=== PATIENT | female | born 1960 | race Caucasian/White ===

== ENCOUNTER → 2017-05-27 14:37 | Outpatient (CLI) | payer MEDICARE, MEDICAID, SELFPAY ==
--- NOTE | 2017-05-27 14:48 | XR_ITS ---
XR chest 2V Ordering Physician: Tres Magallanes Patient Age: 56 years: Female HISTORY: ITS.REASON: LEFT WRIST PAIN,A/P INJURY,FEVER,COUGH TECHNIQUE: PA and lateral chest FINDINGS The lungs appear mildly hyperexpanded but clear with nothing definitely acute within new or hilar contrast digital technique is considered. Heart jamia and mediastinal structures unremarkable.. Previous chest film 10/06/2013. Chest wall T-spine unremarkable IMPRESSION stable chest nothing definite acute
--- NOTE | 2017-05-27 14:48 | XR_ITS ---
XR wrist LT min 3V Ordering Physician: rTes Magallanes Patient Age: 56 years: Female HISTORY: Left wrist pain injury. Dropped piece of what on her wrist pain radial aspect. TECHNIQUE: 3 views of the left breast COMPARISON :None available. Next field FINDINGS No fracture nor dislocation. Early degenerative changes first carpal-metacarpal joint with mild sclerosis, mild hypertrophic changes & narrowing about this joint. Also some minor sclerosis and early arthritic changes between navicular and trapezium articulation radial aspect of the wrist. . Scaphoid appears intact. The fat plane anterior to the wrist appears intact. Incidental note is made of asubtle ovoid lucent area nearly 5 mm x 3 mm at the distal metaphysis of the radius. I believe this This resides just along the dorsal endosteum. No periosteal or cortical reaction or expansion or other features to raise concern. Its margin is not particularly well-defined or sclerotic but tend to favor this is Most likely is a benign incidental observation. However if the patient should have any progressive pain dorsal aspect distal radius, or known other relevant pathology this may warrant follow-up IMPRESSION: No fracture nor dislocation Early degenerative changes radial aspect wrist- most notable at first carpal-metacarpal joint Small subtle lucent area at distal radius metaphysis -doubt significance but note comments above
== END ==
PROVIDERS: PCP Internal Medicine; Visit Provider Internal Medicine
DX: R05 Cough (principal)
CPT/HCPCS: 71046; 73110

== ENCOUNTER → 2018-02-25 15:52 | Outpatient (CLI) | payer MEDICARE, MEDICAID, SELFPAY ==
[2018-02-25 18:20] LABS: Amphetamine/Metha Screen,Urine Negative ng/mL (<1000); Barbiturates Screen,Urine Negative ng/mL (<200); Benzodiazepines Screen,Urine Negative ng/mL (<200); Cannabinoid Screen,Urine Negative ng/mL (<50); Cocaine Screen,Urine Negative ng/mL (<300); Methadone Screen,Urine Negative ng/mL (<300); Opiate Screen,Urine Negative ng/mL (<300); Phencyclidine Screen,Urine Negative ng/mL (<25)
== END ==
PROVIDERS: PCP Internal Medicine; Visit Provider Internal Medicine
DX: Z79.899 Other long term (current) drug therapy
CPT/HCPCS: 80305

== ENCOUNTER → 2018-03-19 14:15 | Outpatient (CLI) | payer MEDICARE, MEDICAID, SELFPAY ==
[2018-03-19 22:02] LABS: Amphetamine/Metha Screen,Urine Negative ng/mL (<1000); Barbiturates Screen,Urine Negative ng/mL (<200); Benzodiazepines Screen,Urine Negative ng/mL (<200); Cannabinoid Screen,Urine Negative ng/mL (<50); Cocaine Screen,Urine Negative ng/mL (<300); Methadone Screen,Urine Negative ng/mL (<300); Opiate Screen,Urine Negative ng/mL (<300); Phencyclidine Screen,Urine Negative ng/mL (<25)
== END ==
PROVIDERS: PCP Internal Medicine; Visit Provider Internal Medicine
DX: Z79.899 Other long term (current) drug therapy (principal)
CPT/HCPCS: 80305

== ENCOUNTER → 2018-04-01 11:40 | Outpatient (CLI) | payer MEDICARE, MEDICAID, SELFPAY ==
[2018-04-01 13:14] LABS: Amphetamine/Metha Screen,Urine Negative ng/mL (<1000); Barbiturates Screen,Urine Negative ng/mL (<200); Benzodiazepines Screen,Urine Negative ng/mL (<200); Cannabinoid Screen,Urine Negative ng/mL (<50); Cocaine Screen,Urine Negative ng/mL (<300); Methadone Screen,Urine Negative ng/mL (<300); Opiate Screen,Urine Negative ng/mL (<300); Phencyclidine Screen,Urine Negative ng/mL (<25)
== END ==
PROVIDERS: Visit Provider Internal Medicine
DX: R41.0 Disorientation, unspecified (principal); Z79.899 Other long term (current) drug therapy
CPT/HCPCS: 80305

== ENCOUNTER → 2018-05-28 14:16 | Outpatient (CLI) | payer MEDICARE, MEDICAID, SELFPAY ==
--- NOTE | 2018-05-28 14:22 | XR_ITS ---
XR hip LT 2-3V w/pelvis HISTORY: ITS.REASON: LT HIP PAIN ORDERING PHYSICIAN: Tres Magallanes PATIENT AGE: 57 years COMPARISON: None FINDINGS: No fracture or dislocation is evident. No significant degenerative change. No lytic or blastic change. Unremarkable soft tissues IMPRESSION: Negative hip
== END ==
PROVIDERS: PCP Internal Medicine; Visit Provider Internal Medicine
DX: M25.552 Pain in left hip (principal)
CPT/HCPCS: 73502

== ENCOUNTER → 2018-06-13 11:51 | Outpatient (CLI) | payer MEDICARE, MEDICAID, SELFPAY ==
[2018-06-13 12:46] LABS: Amphetamine/Metha Screen,Urine Negative ng/mL (<1000); Barbiturates Screen,Urine Negative ng/mL (<200); Benzodiazepines Screen,Urine Negative ng/mL (<200); Cannabinoid Screen,Urine Negative ng/mL (<50); Cocaine Screen,Urine Negative ng/mL (<300); Methadone Screen,Urine Negative ng/mL (<300); Opiate Screen,Urine Negative ng/mL (<300); Phencyclidine Screen,Urine Negative ng/mL (<25)
== END ==
PROVIDERS: Visit Provider Internal Medicine
DX: Z79.899 Other long term (current) drug therapy (principal)
CPT/HCPCS: 80305; 80346

== ENCOUNTER 2018-06-17 09:45 | Outpatient (RCR) | payer MEDICARE, MEDICAID, SELFPAY ==
--- NOTE | 2018-06-17 10:43 | HMH.PTOPEV ---
PT Outpatient Evaluation Rehab PT Outpatient Evaluation Start: 06/17/18 10:25 Freq: Status: Active Protocol: Document 06/17/18 10:25 JASE (Rec: 06/17/18 10:42 JASE [id number]) Electronically Signed By Darrion Dunham, PT 06/17/18 10:25 Outpatient Therapy Subjective History Subjective History Pt reports h/o chronic L sided LBP w/L LE radicular s/s for 1-2 months. Pt reports caring for terminally ill mother, sleeping in recliner, and lifting seemed to start s/s. Pt reports severe L LE (hip/ piriformis) pain, with weakness and N&T. Chief Complaint Pain Stiff Paresthesia Weakness Symptom Type Ache Sharp Dull Stabbing Numbness Tingling Symptoms Relieved By Rest/Positioning Heat Ice OTC Meds Prescription Meds Symptoms Aggravated By Prone Bending/Stooping Physical Activity Twisting Walking Lifting Prior Functional Limitations Lifting Housework Bending/Stooping Current Functional Limitations Lifting Housework Driving Sleeping Standing Stairs Bending/Stooping Symptom Description Constant but Variable Level of pain today (0-10) 6 Pain scale - at its best (0-10) 5 Pain scale - at its worst (0-10) 9 Lumbopelvic Eval Posture Thoracic Spine Posture Standing Position Neutral Lumbar Spine Posture Standing Position Decreased Lordosis Assistive device Assistive Devices None / NA Gait Observation General Gait Pattern Observation Antalgic Gait Palapation tenderness left lumbar spinal tenderness Yes: 3/4 paraspinal tenderness Yes: 3/4 buttock tenderness Yes: 3/4 Lumbar/Sacral Palpation Findings Tenderness Lumbar/Sacral Palpation Overall Comment 3/4 Accessory Movement L-spine Vertebrae Accessory Movements Left
== END 2018-06-17 09:50 | disposition home or self-care (01) ==
LOC: PT 09:45
PROVIDERS: Visit Provider Internal Medicine
DX: M54.32 Sciatica, left side (principal)
CPT/HCPCS: 97010; 97014; 97163; G0283

== ENCOUNTER → 2019-02-20 09:43 | Outpatient (CLI) | payer MEDICARE, MEDICAID, SELFPAY ==
--- NOTE | 2019-02-20 09:48 | CA_ITS ---
APPROVED REPORT Right Upper Extremity Venous Study for DVT. [employer]: Trang Torrez RT(R) Indications Upper Extremity Pain: Right Current Smoker Risk Factors Current Smoker Patient states she has a knot that appeared in upper right arm on the medial side x 6 days ago. Vein Imaging IJV (R): Normal phasic flow is seen. Normal flow, augmentation and compression is seen. No evidence of Deep Vein Thrombosis. No abnormalities are demonstrated. SCV (R): Normal phasic flow is seen. Normal flow, augmentation and compression is seen. No evidence of Deep Vein Thrombosis. No abnormalities are demonstrated. Axillary (R): Normal phasic flow is seen. Normal flow, augmentation and compression is seen. No evidence of Deep Vein Thrombosis. No abnormalities are demonstrated. Brachial (R): Normal phasic flow is seen. Normal flow, augmentation and compression is seen. No evidence of Deep Vein Thrombosis. No abnormalities are demonstrated. Cephalic (R): Thrombus Radial (R): Compressible Ulnar (R): Compressible Findings Color flow duplex demonstrates superficial thrombophlebitis of the right proximal Cephallic. Duplex evaluation of the right upper extremity demonstrates no evidence of DVT. Conclusion Color flow duplex demonstrates superficial thrombophlebitis of the right proximal Cephallic. Duplex evaluation of the right upper extremity demonstrates no evidence of DVT. Electronically signed by : Harjinder Paiz MD 02/20/2019 15:44:38
== END ==
PROVIDERS: PCP Internal Medicine; Visit Provider Surgery
DX: M79.601 Pain in right arm (principal); M79.89 Other specified soft tissue disorders
CPT/HCPCS: 93971

== ENCOUNTER 2019-04-10 08:03 | Observation (INO) ==
[2019-04-10 08:18] LABS: Basophils % 0.5 % (0.1-2.0); Eosinophils # 0.1 K/mm3 (0.0-0.4); Eosinophils % 0.8 % (0.1-12.0); Hematocrit 49.6 % (37.0-47.0); Lymphocytes # 1.8 K/mm3 (0.7-4.5); Lymphocytes % 22.1 % (10-50); Mean Corpuscular HGB Conc 32.2 g/dL (31.8-35.4); Mean Corpuscular Volume 96.4 fl (81-99); Mean Platelet Volume 7.5 fl (7.4-10.4); Monocytes # 0.6 K/mm3 (0.1-1.0); Monocytes % 7.2 % (1.7-9.3); Neutrophils # 5.5 K/mm3 (1.8-7.8); Neutrophils % 69.4 % (37.0-80.0); Platelet Count 214 K/mm3 (142-424); Red Blood Count 5.15 M/mm3 (4.20-5.40); Red Cell Distribution Width 13.8 % (11.5-17.5)
--- NOTE | 2019-04-10 08:23 | Emergency Department Note ---
ED Disposition Clinical Impression: Alcohol withdrawal syndrome, Hypokalemia, Urinary tract infection Disposition: Admitted As Inpatient Condition on Discharge: Serious Referrals: Provider,Referral, [Referring] - - Critical Care Critical Care Time: No Attestation: On 04/10/19, the high probability of a clinically significant, sudden or life threatening deterioration of the following system(s) required my full and direct attention, intervention and personal management. The time I documented below is in addition to time spent performing reported procedures but includes the following listed in this critical care notation. Medical Decision Making - Medical Records Medical records reviewed: Yes: I reviewed the patient's medical records. - Ed Inquiry Pt receiving controlled substance: No Vital Signs: 04/10/19 08:04 Temperature 99.9 F H Temperature Source Oral Pulse Rate [Right] 93 H Respiratory Rate 18 Blood Pressure [Right Arm] 135/96 H Blood Pressure Mean [Right Arm] 109 02 Sat by Pulse Oximetry 93 L - Lab Data Lab results reviewed: Yes: I reviewed the patient's lab results. Lab Results 04/10/19 08:05: WBC 8.0, RBC 5.15, Hgb 16.0, Hct 49.6 H, MCV 96.4, MCH 31.0, MCHC 32.2, RDW 13.8, Plt Count 214, MPV 7.5, Neut % (Auto) 69.4, Lymph % (Auto) 22.1, [place] % (Auto) 7.2, Eos % (Auto) 0.8, Baso % (Auto) 0.5, Neut # (Auto) 5.5, Lymph # (Auto) 1.8, [place] # (Auto) 0.6, Eos # (Auto) 0.1, Baso # (Auto) 0.0 04/10/19 08:05: Sodium 135 L, Potassium 2.7 L*, Chloride 94 L, Carbon Dioxide 31, Anion Gap 12.7, BUN 13, Creatinine 0.91, Estimated Creat Clear 67, Estimated GFR 63, Est GFR ( Amer) 77, Glucose 123 H, Calcium 8.8, Total Bilirubin 1.2 H, AST 89 H, ALT 66, Alkaline Phosphatase 121 H, Troponin I < 0.02, Total Protein 7.4, Albumin 3.4, Globulin 4.0 H, Albumin/Globulin Ratio 0.9 L, Salicylates 3.1, Acetaminophen 0 L, Plasma/Serum Alcohol 0 04/10/19 08:05: Magnesium 1.4 04/10/19 08:13: Influenza Type A Ag Negative, Influenza Type B Ag Negative 04/10/19 08:34: Urine Color Yellow, Urine Appearance Clear, Urine pH 6.0, Ur Specific [place] 1.025, Urine Protein 1+, Urine Glucose (UA) Negative, Urine Ket ones Negative, Urine Blood 2+, Urine Nitrate Negative, Urine Bilirubin Negative, Urine Urobilinogen 1.0, Ur Leukocyte Esterase Negative, Urine RBC 3-5, Urine WBC 5-10, Ur Squamous Epith Cells 5-10, Amorphous Sediment 2+, Urine Bacteria 3+ 04/10/19 08:34: Urine Opiates Screen Negative, Urine Methadone Screen Negative, Ur Barbituates Screen Positive H, Ur Phencyclidine Scrn Negative, Ur Amphetamines Screen Negative, U Benzodiazepines Scrn Negative, Urine Cocaine Screen Negative, U Marijuana (THC) Screen Negative Result diagrams: 04/10/19 08:05 04/10/19 08:05 Orders (Tests/Meds): ED MEDICATIONS Discontinued Medications Generic Name Dose Route Start Last Admin Trade Name Freq PRN Reason Stop Dose Admin Sodium Chloride 1,000 mls @ 999 mls/hr 04/10/19 08:15 04/10/19 08:18 Sod Chlor 0.9% 1000ml Bag IV 04/10/19 09:15 999 mls/hr .Q1H1M PATRICA Administration Ondansetron HCl 4 mg 04/10/19 08:14 04/10/19 08:17 Zofran 4mg/2ml Vial IV 04/10/19 08:15 4 mg ONCE ONE Administration ORDERS Category Date Time Status Troponin I Q3H Lab 04/10/19 11:15 Ordered Troponin I Q3H Lab 04/10/19 14:15 Ordered Urine Culture Stat Micro 04/10/19 08:34 Received - Radiology Data #1 Image(s): Chest Image Reviewed: Yes I reviewed the patient's radiology results, Yes I reviewed the patient's radiology image Preliminary Findings: Normal/NAD - ECG Data Tracing #1 I reviewed this ECG and interpreted as documented below: Normal sinus rhythm at a rate of 79, normal EKG. ECG normal with no acute: arrhythmias, ischemia, conduction abnormalities, chamber hypertrophy Normal Sinus Rhythm: Yes Alcohol HPI - General Chief Complaint: Alcohol Stated Complaint: alcohol Time Seen by Provider: 04/10/19 08:10 Mode of Arrival: EMS Limitations: No Limitations Description of Symptoms (Recalled from ER Triage Doc. by RN): Pt states 3 days ago she began to drink excessive amout of tequila and then quit last night and now she began to have chills, N/V, shakes, and belly pain. Pt states she is not normally a drinker. - History of Present Illness HPI narrative: 58-year-old female presents with complaints of nausea vomiting, nervousness and tremor after 3 days of binge drinking and 1 day of abstinence. MD complaint: alcohol withdrawal Last drink: days (ago) (1) Recent trauma: No Associated symptoms: nausea, vomiting, tremors Treatments prior to arrival: none - Related Data Home Medications Medication Instructions Recorded Confirmed aspirin 81 mg tablet,delayed 81 mg PO DAILY 12/24/17 02/20/19 release clonazepam 1 mg tablet 1 mg PO QID tab 12/24/17 02/20/19 estradiol 1 mg tablet 1 mg PO DAILY 12/24/17 02/20/19 mirtazapine 45 mg tablet 45 mg PO DAILY 12/24/17 02/20/19 omeprazole 20 mg capsule,delayed 20 mg PO DAILY 12/24/17 02/20/19 release pregabalin 200 mg capsule 200 mg PO BID 12/24/17 02/20/19 Previous Rx's Medication Instructions Recorded darifenacin ER 15 mg 15 mg PO DAILY #30 tab 01/22/18 tablet,extended release 24 hr Cyclobenzaprine HCl [Flexeril 10mg 10 mg PO TID PRN #15 tab 06/10/18 tablet] Allergies Allergy/AdvReac Type Severity Reaction Status Date / Time No Known Allergies Allergy Unverified 02/20/19 09:13 [facility] History - Hepatitis A Screen Drug use history?: No High risk sexual behaviors?: No History of sexually transmitted infection?: No Currently employed?: No Childcare worker?: No Do you have indoor plumbing?: Yes Do you have electricity?: Yes Attestation statement:: This patient has been screened for Hepatitis A risk factors. I have reviewed the patient's past medical history: Yes Medical History: Reports:: Chronic Obstructive Pulmonary Disease (COPD), Depression, Gastroesophageal Reflux Disease(GERD) Denies:: Diabetes Mellitus Type 2, Internal Pacemaker, Seizures Other Medical History: Reports: Hormone Therapy Comment: Bladder Issues Other Surgeries: Yes: Cardiac Catheterization, Hysterectomy-Total, Tubal Ligation, Other. No: Pacemaker Comment: polyps removed from vocal cords - Social History Smoking Status: Current every day smoker Tobacco Type: cigarettes # Packs/Day (cigarettes): 1 Alcohol Intake: current Alcohol Intake Frequency:: holidays/special occasions only Substance Use Type: denies use Occupational Status: unemployed Housing: house - Psychiatric History Pschychiatric History:: Reports:: Depression Family Hx:: Coronary Artery Disease, Heart Attack Comment: Paternal Grandmother- of [place] at 62 ROS Obtained: Yes Systems reviewed as appropriate & no additional complaints - Constitutional Constitutional: Reports fatigue, Reports malaise - Eyes Eyes: Reports system reviewed and no additional complaints, except as docu - ENT Ears, Nose, Mouth, and Throat: Reports system reviewed and no additional complaints, except as docu - Cardiovascular Cardiovascular: Reports system reviewed and no additional complaints, except as docu - Respiratory Respiratory: Yes system reviewed and no additional complaints, except as docu - Gastrointestinal Gastrointestingal: Reports: nausea, vomiting - Genitourinary Female Genitourinary: Reports system reviewed and no additional complaints, except as docu - Musculoskeletal Musculoskeletal: Reports system reviewed and no additional complaints, except as docu - Integumentary/Breasts Skin/Breast: Reports system reviewed and no additional complaints, except as docu - Neurologic Neurologic: Reports tremor(s) - Endocrine Endocrine: Reports system reviewed and no additional complaints, except as docu - Hematologic/Lymphatic Henatologic/Lymphatic: Reports system reviewed and no additional complaints, except as docu - Allergic/Immunologic Allergic/Immunologic: Reports system reviewed and no additional complaints, except as docu Physical Exam - General General appearance: alert, anxious - Head Head exam: atraumatic, normocephalic, normal inspection - Eye Eye exam: Present: normal appearance, PERRL, EOMI - ENT ENT exam: Present: normal exam, normal oropharynx, mucous membranes moist, TM's normal bilaterally, normal external ear exam - Neck Neck exam: Present: normal inspection, full ROM, trachea midline. Absent: meningismus, lymphadenopathy - Chest Chest inspection: Present: normal inspection, symmetric chest wall rise. Absent: tenderness - Respiratory Respiratory exam: Present: normal lung sounds bilaterally. Absent: respiratory distress - Cardiovascular Cardiovascular exam: Present: regular rate, normal rhythm, normal heart sounds. Absent: JVD - Abdominal Exam Abdominal exam: Present: soft, normal bowel sounds. Absent: distention, tenderness, guarding - Extremities Exam Extremities exam: Present: normal inspection, full ROM, normal capillary refill. Absent: calf tenderness - Back Exam Back exam: Present: normal inspection. Absent: tenderness - Neurological Exam Neurological exam: Present: alert, oriented X3, CN II-XII intact. Absent: motor sensory deficit - Psychiatric Psychiatric exam: Present: anxious - Skin Skin exam: Present: warm, dry, intact, normal color
[2019-04-10 08:37] LABS: Alanine Aminotransferase 66 U/L (12-78); Albumin Level 3.4 gm/dL (3.4-5.0); Albumin/Globulin Ratio 0.9 (1.1-1.8); Alkaline Phosphatase 121 U/L (46-116); Anion Gap 12.7 mEq/L (5-15); Aspartate Amino Transferase 89 U/L (15-37); Bilirubin,Total 1.2 mg/dL (0.2-1.0); Blood Urea Nitrogen 13 mg/dL (7-18); Calcium 8.8 mg/dL (8.5-10.1); Carbon Dioxide 31 mmol/L (21.0-32.0); Chloride 94 mmol/L (98-107); Ethyl Alcohol 0 mg/dL (0-99); Glucose 123 mg/dL (74-106); Salicylate 3.1 mg/dL (2.8-20.0); Sodium 135 mmol/L (136-145); Total Protein,Serum 7.4 gm/dL (6.4-8.2)
[2019-04-10 08:38] LABS: Acetaminophen 0 ug/mL (10-30)
[2019-04-10 08:40] LABS: Microscopic, Urine URINE MICROSCOPIC (MICROSCOPIC)
[2019-04-10 08:42] LABS: Appearance,Urine CLEAR (Clear); Blood, Urine 2+ (Negative); Color,Urine YELLOW (Yellow); Glucose,Urine (UA) Negative (Negative); Ketones,Urine Negative (Negative); Leukocyte Esterase,Urine Negative (Negative); Protein,Urine 1+ (Negative); Specific Gravity, Urine 1.025 (1.005-1.030)
[2019-04-10 08:50] LABS: Bilirubin,Urine Negative (Negative)
[2019-04-10 08:52] LABS: Amphetamine/Metha Screen,Urine Negative ng/mL (<1000); Barbiturates Screen,Urine Positive ng/mL (<200); Benzodiazepines Screen,Urine Negative ng/mL (<200); Cannabinoid Screen,Urine Negative ng/mL (<50); Cocaine Screen,Urine Negative ng/mL (<300); Methadone Screen,Urine Negative ng/mL (<300); Opiate Screen,Urine Negative ng/mL (<300); Phencyclidine Screen,Urine Negative ng/mL (<25)
[2019-04-10 09:01] LABS: Amorphous Sediment,Urine 2+ /lpf; Bacteria,Urine 3+ /lpf
--- NOTE | 2019-04-10 12:55 | Electrocardiograph Report ---
APPROVED REPORT Exam: Resting ECG HR:79 bpm ECG Measurements Heart Rate 79 AXES [place] 128 P 63 QRSd 76 QRS 89 QT 402 T63 QTc 460 <Conclusion> Normal sinus rhythm Normal ECG Electronically signed by : Tres Magallanes, 04/10/2019 12:54:31
--- NOTE | 2019-04-10 15:17 | Pharmacy Consult Notes ---
[facility] Pharmacy VTE Monitoring - Patient Demographics Admission date: 04/10/19 Report Date: 04/10/19 Time: 15:17 Allergies/Adverse Reactions: Patient Allergies No Known Allergies Allergy (Unverified 02/20/19 09:13) Height: 1.65 m Weight: 61.037 kg Patient Problems: Current Active Problems Hypokalemia (Acute) Alcohol withdrawal syndrome (Acute) Urinary tract infection (Acute) - VTE Risk Labs: VTE Related Lab Results Hgb 16.0 g/dL (12.2-16.2) 04/10/19 08:05 Hct 49.6 % (37.0-47.0) H 04/10/19 08:05 Plt Count 214 K/mm3 (142-424) 04/10/19 08:05 BUN 13 mg/dL (7-18) 04/10/19 08:05 Creatinine 0.91 mg/dL (0.55-1.02) 04/10/19 08:05 Estimated Creat Clear 67 mL/min (50-200) 04/10/19 08:05 Was VTE Risk Assessment Performed: Yes VTE Score: 3 VTE Risk Level: Low Risk Clinical Trial Participant: No - Prophylaxis VTE Prophylaxis Ordered?: Yes Types of VTE Prophylaxis: TEDS Knee High
--- NOTE | 2019-04-10 15:26 | History & Physical Report ---
*Admission Date: 04/10/19 *Chief complaint: Nausea/vomiting/hypokalemia/alcohol withdrawal *History of present illness: 58-year-old white female with a history of 3 days of significant tequila ingestion-she reports that "I normally do not drink but I just felt like drinking a lot of tequila." She reports that she stopped abruptly yesterday and this morning began to have shakes, vomiting and felt like she was about to have a seizure and came to the emergency department where she was found to be hypokalemic, hypomagnesemic and was admitted to the hospital. History is notable for fibromyalgia and bladder spasms for which she is "on disability." Law enforcement in [place] reports that patient has a notable history of drinking frequently even though she maintains that she has not been drinking over the past year. [facility] History I have reviewed the patient's past medical history: Yes Medical History: Reports:: Chronic Obstructive Pulmonary Disease (COPD), Depression, Gastroesophageal Reflux Disease(GERD) Denies:: Cancer, Diabetes Mellitus Type 1, Diabetes Mellitus Type 2, Internal Pacemaker, MRSA, Seizures *Have you ever received a pneumonia vaccine?: No *Have you received a flu vaccine this season?: No Other Medical History: Reports: Hormone Therapy Other Surgeries: Yes: Cardiac Catheterization, Hysterectomy-Total, Tubal Ligat ion, Other. No: Pacemaker Amputation: No Fractures: No - *Social History Educational Level: Completed High School Smoking Status: Current every day smoker Tobacco Type: cigarettes # Packs/Day (cigarettes): 1 Alcohol Intake: current Alcohol Intake Frequency:: 3 or more drinks per day Substance Use Type: denies use *Occupational Status:: unemployed Housing: house Household Members: family *Travel in the last 8 weeks: None - Psychiatric History Pschychiatric History:: Reports:: Depression Family Hx:: Coronary Artery Disease, Heart Attack Review of Systems - Review of Systems Review of systems:: pertinent systems reviewed and negative unless documented below Review of systems notable for GI distress-now resolved. Negative for seizures. Negative for cardiac or pulmonary symptoms. - *Neurologic Reports tremor(s) Meds Home Medications Medication Instructions Recorded Confirmed Type aspirin 81 mg tablet,delayed 81 mg PO DAILY 12/24/17 02/20/19 History release clonazepam 1 mg tablet 1 mg PO QID tab 12/24/17 02/20/19 History estradiol 1 mg tablet 1 mg PO DAILY 12/24/17 02/20/19 History mirtazapine 45 mg tablet 45 mg PO DAILY 12/24/17 02/20/19 History omeprazole 20 mg capsule,delayed 20 mg PO DAILY 12/24/17 02/20/19 History release pregabalin 200 mg capsule 200 mg PO BID 12/24/17 02/20/19 History darifenacin ER 15 mg 15 mg PO DAILY #30 tab 01/22/18 02/20/19 Rx tablet,extended release 24 hr Cyclobenzaprine HCl [Flexeril 10mg 10 mg PO TID PRN #15 tab 06/10/18 02/20/19 Rx tablet] Allergies Allergy/AdvReac Type Severity Reaction Status Date / Time No Known Allergies Allergy Unverified 02/20/19 09:13 Exam Vital signs and Labs for Last 24 Hours: Temp Pulse Resp BP Pulse Ox 98.2 F 70 18 117/85 93 L 04/10/19 10:36 04/10/19 12:00 04/10/19 10:36 04/10/19 10:36 04/10/19 10:04 Laboratory Results - last 24 hr 04/10/19 08:05: WBC 8.0, RBC 5.15, Hgb 16.0, Hct 49.6 H, MCV 96.4, MCH 31.0, MCHC 32.2, RDW 13.8, Plt Count 214, MPV 7.5, Neut % (Auto) 69.4, Lymph % (Auto) 22.1, [place] % (Auto) 7.2, Eos % (Auto) 0.8, Baso % (Auto) 0.5, Neut # (Auto) 5.5, Lymph # (Auto) 1.8, [place] # (Auto) 0.6, Eos # (Auto) 0.1, Baso # (Auto) 0.0 04/10/19 08:05: Sodium 135 L, Potassium 2.7 L*, Chloride 94 L, Carbon Dioxide 31, Anion Gap 12.7, BUN 13, Creatinine 0.91, Estimated Creat Clear 67, Estimated GFR 63, Est GFR ( Amer) 77, Glucose 123 H, Calcium 8.8, Total Bilirubin 1.2 H, AST 89 H, ALT 66, Alkaline Phosphatase 121 H, Troponin I < 0.02, Total Protein 7.4, Albumin 3.4, Globulin 4.0 H, Albumin/Globulin Ratio 0.9 L, Salicylates 3.1, Acetaminophen 0 L, Plasma/Serum Alcohol 0 04/10/19 08:05: Magnesium 1.4 04/10/19 08:13: Influenza Type A Ag Negative, Influenza Type B Ag Negative 04/10/19 08:34: Urine Color Yellow, Urine Appearance Clear, Urine pH 6.0, Ur Specific [place] 1.025, Urine Protein 1+, Urine Glucose (UA) Negative, Urine Ketones Negative, Urine Blood 2+, Urine Nitrate Negative, Urine Bilirubin Negative, Urine Urobilinogen 1.0, Ur Leukocyte Esterase Negative, Urine RBC 3-5, Urine WBC 5-10, Ur Squamous Epith Cells 5-10, Amorphous Sediment 2+, Urine Bacteria 3+ 04/10/19 08:34: Urine Opiates Screen Negative, Urine Methadone Screen Negative, Ur Barbituates Screen Positive H, Ur Phencyclidine Scrn Negative, Ur Amphetamines Screen Negative, U Benzodiazepines Scrn Negative, Urine Cocaine Screen Negative, U Marijuana (THC) Screen Negative I & O for Last 24 hours: Intake & Output 04/08/19 04/09/19 04/10/19 04/11/19 11:59 11:59 11:59 11:59 Intake Total 340 / 340 Balance 340 / 340 Weight 134 lb 9 oz Narrative: Patient is awake. Alert. Oriented x3. Oropharynx clear. No JVD, otherwise ENT exam. Atraumatic facial exam. Lungs clear in the anterior sánchez except for some scattered smoker's rhonchi in the bases. Heart rate regular. Abdomen soft, benign, nontender. No focal neurologic deficits. No edema or clubbing. Good distal pulses. Assessment and Plan (1) Alcohol withdrawal syndrome Current visit: Yes Status: Acute Category: Medical Code(s): F10.239 - Alcohol dependence with withdrawal, unspecified Agree with admission and replacement of electrolytes. Probable discharge tomorrow. We will advance diet. PRN Ativan. Hold medications. Patient is on long-term clonazepam at home. I cautioned her about the danger of alcohol and benzodiazepines together. She reports that she ran out of her medicine 2 weeks ago because "my car is not working well and I did not want to drive long distances and I do not like the pharmacies in [place]." (2) Hypokalemia Current visit: Yes Status: Acute Category: Medical Code(s): E87.6 - Hypokalemia
[2019-04-11 06:53] LABS: Basophils % 0.5 % (0.1-2.0); Eosinophils # 0.1 K/mm3 (0.0-0.4); Neutrophils # 3.4 K/mm3 (1.8-7.8)
[2019-04-11 07:04] LABS: Eosinophils % 2.2 % (0.1-12.0); Lymphocytes % 34.9 % (10-50); Mean Corpuscular HGB Conc 31.9 g/dL (31.8-35.4); Mean Corpuscular Volume 95.7 fl (81-99); Mean Platelet Volume 8.4 fl (7.4-10.4); Monocytes # 0.3 K/mm3 (0.1-1.0); Monocytes % 4.4 % (1.7-9.3); Platelet Count 165 K/mm3 (142-424); Red Blood Count 4.18 M/mm3 (4.20-5.40); Red Cell Distribution Width 13.8 % (11.5-17.5); White Blood Count 5.8 K/mm3 (4.8-10.8)
[2019-04-11 07:40] LABS: Albumin Level 2.3 gm/dL (3.4-5.0); Albumin/Globulin Ratio 0.8 (1.1-1.8); Anion Gap 9.3 mEq/L (5-15); Bilirubin,Total 0.6 mg/dL (0.2-1.0); Globulin 2.9 gm/dl (1.3-3.2); Total Protein,Serum 5.2 gm/dL (6.4-8.2)
[2019-04-11 07:51] LABS: Calcium 7.7 mg/dL (8.5-10.1)
--- NOTE | 2019-04-11 08:48 | Discharge Summary ---
General - General Admission date:: 04/10/19 Discharge date: 04/12/19 HPI HPI: 58-year-old white female with a history of 3 days of significant tequila ingestion-she reports that "I normally do not drink but I just felt like drinking a lot of tequila." She reports that she stopped abruptly yesterday and this morning began to have shakes, vomiting and felt like she was about to have a seizure and came to the emergency department where she was found to be hypokalemic, hypomagnesemic and was admitted to the hospital. History is notable for fibromyalgia and bladder spasms for which she is "on disability." Law enforcement in [place] reports that patient has a notable history of drinking frequently even though she maintains that she has not been drinking over the past year. Hospital Course Hospital Course: Admitted for electrolyte disturbance, concern for alcohol withdrawal and tremor, and small dehydration. Responded well to IV fluids and vitamins. Able to tolerate advancement in diet. Patient had no seizures or teo DTs. Withdrawal symptoms treated with benzodiazepines. Decision made to transition to chlordiazepoxide the day prior to discharge for long-acting benefit and to limit the need to discharge with benzo taper due to high risk for resuming alcohol consumption. Patient continued to maintain that she does not drink and this was a one-time event however, she is well-known to us in the community for her unfortunate alcohol dependence. High risk for resuming drinking once discharged. Patient medically stable with no complaints at this time. Counseled on need to avoid alcohol due to increased risk of side effects with concurrent use of Benzos and EtOH. Follow-up with her PCP, Dr. Magallanes in the coming week. Objective Vital signs: Temp Pulse Resp BP Pulse Ox 98.8 F 86 18 108/77 L 98 04/11/19 08:00 04/11/19 08:00 04/11/19 08:00 04/11/19 08:00 04/11/19 08:00 Narrative: Patient is awake. Alert. Oriented x3. Appears chronically ill. Oropharynx clear. No JVD, otherwise ENT exam. Atraumatic facial exam. Lungs clear in the anterior sánchez except for some scattered smoker's rhonchi in the bases. Heart rate regular. Abdomen soft, benign, nontender. No focal neurologic deficits, intervally improved generalized tremor in hands No edema or clubbing. Good distal pulses. Results Labs on day of discharge: Labs from last 24 hours 04/11/19 04/11/19 04/10/19 06:20 06:20 08:34 WBC 5.8 D RBC 4.18 L Hct 40.0 MCV 95.7 MCH 30.5 MCHC 31.9 RDW 13.8 Plt Count 165 MPV 8.4 Neut % (Auto) 58.0 Lymph % (Auto) 34.9 [place] % (Auto) 4.4 Eos % (Auto) 2.2 Baso % (Auto) 0.5 Neut # (Auto) 3.4 Lymph # (Auto) 2.0 [place] # (Auto) 0.3 Eos # (Auto) 0.1 Baso # (Auto) 0.0 Sodium 139 Potassium 3.3 L D Chloride 104 Carbon Dioxide 29 Anion Gap 9.3 BUN 7 D Creatinine 0.70 D Estimated Creat Clear 89 Estimated GFR 86 Est GFR ( Amer) 104 D Glucose 108 H Calcium 7.7 L D Magnesium 1.3 L Total Bilirubin 0.6 AST 74 H ALT 47 D Alkaline Phosphatase 84 Total Protein 5.2 L D Albumin 2.3 L D Globulin 2.9 Albumin/Globulin Ratio 0.8 L Urine Color Urine Appearance Urine pH Ur Specific Justice Urine Protein Urine Glucose (UA) Urine Ketones Urine Blood Urine Nitrate Urine Bilirubin Urine Urobilinogen Ur Leukocyte Esterase Urine RBC Urine WBC Ur Squamous Epith Cells Amorphous Sediment Urine Bacteria Urine Opiates Screen Negative Urine Methadone Screen Negative Ur Barbituates Screen Positive H Ur Phencyclidine Scrn Negative Ur Amphetamines Screen Negative U Benzodiazepines Scrn Negative Urine Cocaine Screen Negative U Marijuana (THC) Screen Negative 04/10/19 08:34 WBC RBC Hct MCV MCH MCHC RDW Plt Count MPV Neut % (Auto) Lymph % (Auto) [place] % (Auto) Eos % (Auto) Baso % (Auto) Neut # (Auto) Lymph # (Auto) [place] # (Auto) Eos # (Auto) Baso # (Auto) Sodium Potassium Chloride Carbon Dioxide Anion Gap BUN Creatinine Estimated Creat Clear Estimated GFR Est GFR ( Amer) Glucose Calcium Magnesium Total Bilirubin AST ALT Alkaline Phosphatase Total Protein Albumin Globulin Albumin/Globulin Ratio Urine Color Yellow Urine Appearance Clear Urine pH 6.0 Ur Specific Justice 1.025 Urine Protein 1+ Urine Glucose (UA) Negative Urine Ketones Negative Urine Blood 2+ Urine Nitrate Negative Urine Bilirubin Negative Urine Urobilinogen 1.0 Ur Leukocyte Esterase Negative Urine RBC 3-5 Urine WBC 5-10 Ur Squamous Epith Cells 5-10 Amorphous Sediment 2+ Urine Bacteria 3+ Urine Opiates Screen Urine Methadone Screen Ur Barbituates Screen Ur Phencyclidine Scrn Ur Amphetamines Screen U Benzodiazepines Scrn Urine Cocaine Screen U Marijuana (THC) Screen Preliminary micro results at discharge 04/10/19 08:34 Urine Culture - Preliminary Urine,Clean Catch NO GROWTH AFTER 24 HOURS DS: Diagnosis - Discharge Diagnosis (1) Alcohol withdrawal syndrome Status: Acute (2) Hypokalemia Status: Resolved Discharge Plan - Patient Discharge Instructions ACTIVITY: Continue current activity DIET: continue same diet Patient Instructions: Urinary Tract Infection, DI for Urinary Tract Infection (UTI) - Follow up Plan Follow up with: Tres Magallanes [Primary Care Provider] - Disposition: Home, Self-Skilled Nursing Medications: Home Medications Medication Instructions Recorded Confirmed Type estradiol 1 mg tablet 1 mg PO DAILY 12/24/17 04/10/19 History Darifenacin Hydrobromide 7.5 mg PO HS 04/10/19 04/10/19 History [Darifenacin ER] Mirtazapine 30 mg PO DAILY 04/10/19 04/10/19 History Pregabalin [Lyrica 300mg Cap] 300 mg PO BID 04/10/19 04/10/19 History clonazePAM [Clonazepam] 1 mg PO TID 04/10/19 04/10/19 History risperiDONE [Risperdal] 1 mg PO DAILY 04/10/19 04/10/19 History Prescriptions/Medication Reconciliation: Continued estradiol 1 mg tablet 1 mg PO DAILY clonazePAM [Clonazepam] 1 mg PO TID Pregabalin [Lyrica 300mg Cap] 300 mg PO BID Mirtazapine 30 mg PO DAILY Darifenacin Hydrobromide [Darifenacin ER] 7.5 mg PO HS risperiDONE [Risperdal] 1 mg PO DAILY - Problem Reconciliation Problems Reviewed?: Yes
[2019-04-11 09:33] LABS: Hemoglobin 12.8 g/dL (12.2-16.2)
--- NOTE | 2019-04-11 10:00 | Progress Note ---
Internal Medicine - PN: Subj *Date: 04/11/19 *Time: 09:57 Interval history: Ms. Hayden appears clinically stable today with improvement in her labs however does complain of shakes and concern for going home and withdrawing. Denies being an alcoholic. States she was drinking tequila only for a couple days but this is not her norm. Have strong concern she is not being fully honest with me as she is well-known to us in the community for having regular pickups by the police for intoxication. Denies any history of DTs or seizures, however having difficult time trusting she is being honest with me, yet again. Denies chest pain, shortness of breath. Having multiple bowel movements but t hey are soft and formed. No nausea or vomiting. Tolerating liquid diet. Afebrile and normotensive Exam Vital signs and Labs for Last 24 Hours: Temp Pulse Resp BP Pulse Ox 98.8 F 86 18 108/77 L 98 04/11/19 08:00 04/11/19 08:00 04/11/19 08:00 04/11/19 08:00 04/11/19 08:00 Laboratory Results - last 24 hr 04/11/19 06:20: WBC 5.8 D, RBC 4.18 L, Hgb 12.8 D, Hct 40.0, MCV 95.7, MCH 30.5, MCHC 31.9, RDW 13.8, Plt Count 165, MPV 8.4, Neut % (Auto) 58.0, Lymph % (Auto) 34.9, [place] % (Auto) 4.4, Eos % (Auto) 2.2, Baso % (Auto) 0.5, Neut # (Auto) 3.4, Lymph # (Auto) 2.0, [place] # (Auto) 0.3, Eos # (Auto) 0.1, Baso # (Auto) 0.0 04/11/19 06:20: Sodium 139, Potassium 3.3 L D, Chloride 104, Carbon Dioxide 29, Anion Gap 9.3, BUN 7 D, Creatinine 0.70 D, Estimated Creat Clear 89, Estimated GFR 86, Est GFR ( Amer) 104 D, Glucose 108 H, Calcium 7.7 L D, Magnesium 1.3 L, Total Bilirubin 0.6, AST 74 H, ALT 47 D, Alkaline Phosphatase 84, Total Protein 5.2 L D, Albumin 2.3 L D, Globulin 2.9, Albumin/Globulin Ratio 0.8 L I & O for Last 24 hours: Intake & Output 04/08/19 04/09/19 04/10/19 04/11/19 23:59 23:59 23:59 23:59 Intake Total 710 / 710 1920 / 1920 Balance 710 / 710 1920 / 1920 Weight 61.037 kg 64.864 kg Microbiology Reports for the Last 24 Hours: Microbiology 04/10/19 08:34 Urine,Clean Catch Urine Culture - Preliminary NO GROWTH AFTER 24 HOURS Narrative: Patient is awake. Alert. Oriented x3. Appears chronically ill. Oropharynx clear. No JVD, otherwise ENT exam. Atraumatic facial exam. Lungs clear in the anterior sánchez except for some scattered smoker's rhonchi in the bases. Heart rate regular. Abdomen soft, benign, nontender. No focal neurologic deficits, generalized tremor in hands, voice intermittently tremulous No edema or clubbing. Good distal pulses. Assessment and Plan (1) Alcohol withdrawal syndrome Current visit: Yes Status: Acute Category: Medical Code(s): F10.239 - Alcohol dependence with withdrawal, unspecified (2) Hypokalemia Current visit: Yes Status: Resolved Category: Medical Code(s): E87.6 - Hypokalemia - Assessment and plan all Dx Assessment and Plan for all problems:: 58-year-old with history of alcohol dependency. Recent cessation of alcohol consumption, at risk for withdrawals. Transition to Librium today with a dose this morning. If tolerates well, will give additional dose tomorrow due to long half-life and active metabolites, will plan for discharge tomorrow and plan to follow-up with her PCP as soon as possible for continued observation and treatment in the outpatient setting. Advance diet today. Continues to require inpatient management. Clinically guarded, prognosis fair
[2019-04-12 06:36] LABS: Basophils % 0.5 % (0.1-2.0); Eosinophils # 0.2 K/mm3 (0.0-0.4); Eosinophils % 4.4 % (0.1-12.0); Hematocrit 41.8 % (37.0-47.0); Hemoglobin 12.9 g/dL (12.2-16.2); Lymphocytes # 1.4 K/mm3 (0.7-4.5); Lymphocytes % 28.9 % (10-50); Mean Corpuscular HGB Conc 30.9 g/dL (31.8-35.4); Mean Corpuscular Volume 97.7 fl (81-99); Mean Platelet Volume 9.8 fl (7.4-10.4); Monocytes # 0.2 K/mm3 (0.1-1.0); Monocytes % 3.7 % (1.7-9.3); Neutrophils % 62.4 % (37.0-80.0); Platelet Count 126 K/mm3 (142-424); Red Blood Count 4.28 M/mm3 (4.20-5.40); Red Cell Distribution Width 13.9 % (11.5-17.5); White Blood Count 4.7 K/mm3 (4.8-10.8)
[2019-04-12 06:44] LABS: Anion Gap 11.2 mEq/L (5-15); Calcium 7.6 mg/dL (8.5-10.1)
== END 2019-04-12 10:30 | disposition home or self-care (01) ==
LOC: ER 08:03 → 2ND 08:03
PROVIDERS: ADMIT Internal Medicine Adolescent Medicine; ATTEND Internal Medicine Adolescent Medicine
CPT/HCPCS: 36415; 71010; 71045; 80048; 80053; 80305; 80329; 81001; 83735; 84484; 85025; 87086; 87275; 87276; 93005; 96374; 99284; G0378; J2405

== ENCOUNTER 2019-05-10 13:27 | Observation (INO) ==
[2019-05-10 14:09] LABS: Basophils # 0.1 K/mm3 (0-0.2); Basophils % 0.2 % (0.1-2.0); Eosinophils # 0.1 K/mm3 (0.0-0.4); Eosinophils % 0.7 % (0.1-12.0); Hematocrit 51.5 % (37.0-47.0); Hemoglobin 17.2 g/dL (12.2-16.2); Lymphocytes # 1.8 K/mm3 (0.7-4.5); Lymphocytes % 8.9 % (10-50); Mean Corpuscular HGB Conc 33.4 g/dL (31.8-35.4); Mean Corpuscular Volume 94.9 fl (81-99); Mean Platelet Volume 7.8 fl (7.4-10.4); Monocytes # 0.7 K/mm3 (0.1-1.0); Monocytes % 3.6 % (1.7-9.3); Neutrophils # 17.6 K/mm3 (1.8-7.8); Neutrophils % 86.6 % (37.0-80.0); Platelet Count 439 K/mm3 (142-424); Red Blood Count 5.43 M/mm3 (4.20-5.40)
[2019-05-10 14:11] LABS: Albumin Level 3.5 gm/dL (3.4-5.0); Albumin/Globulin Ratio 0.8 (1.1-1.8); Anion Gap 24.2 mEq/L (5-15); Bilirubin,Total 0.3 mg/dL (0.2-1.0); Calcium 10.1 mg/dL (8.5-10.1); Globulin 4.2 gm/dl (1.3-3.2); Total Protein,Serum 7.7 gm/dL (6.4-8.2)
[2019-05-10 14:13] LABS: White Blood Count 20.6 K/mm3 (4.8-10.8)
[2019-05-10 14:15] LABS: Lymphocytes % 15 % (10-50); Monocytes % 1 % (2-9); Neutrophils % 84 % (42-76); RBC Morphology Normal; Total Cells Counted 100
[2019-05-10 15:42] LABS: Amylase 60 U/L (25-115)
--- NOTE | 2019-05-10 16:45 | Emergency Department Note ---
ED Disposition Clinical Impression: Alcohol abuse, Volume depletion, Hypomagnesemia, Acute anxiety, Agitation, Duodenitis Sepsis Qualifiers: Sepsis type: sepsis due to unspecified organism Sepsis acute organ dysfunction status: without acute organ dysfunction Qualified Code(s): A41.9 - Sepsis, unspecified organism Leukocytosis Qualifiers: Leukocytosis type: unspecified Qualified Code(s): D72.829 - Elevated white blood cell count, unspecified Alcohol intoxication Qualifiers: Complication of substance-induced condition: uncomplicated Qualified Code(s): F10.920 - Alcohol use, unspecified with intoxication, uncomplicated Gastritis Qualifiers: Gastritis type: alcoholic Chronicity: unspecified Gastritis bleeding: without bleeding Qualified Code(s): K29.20 - Alcoholic gastritis without bleeding Disposition: Admitted As Inpatient Condition on Discharge: Fair (Stable) Referrals: Tres Magallanes [Primary Care Provider] - Time of Disposition: 18:39 - Critical Care Critical Care Time: No Attestation: On 05/10/19, the high probability of a clinically significant, sudden or life threatening deterioration of the following system(s) required my full and direct attention, intervention and personal management. The time I documented below is in addition to time spent performing reported procedures but includes the following listed in this critical care notation. Medical Decision Making - Medical Records Medical records reviewed: Yes: I reviewed the patient's medical records. - Ed Inquiry Pt receiving controlled substance: No Ed was queried for this patient: No Vital Signs: 05/10/19 13:28 05/10/19 14:14 05/10/19 16:00 Temperature 98.5 F 99.8 F H Temperature Source Oral Oral Pulse Rate [Radial] 121 H 112 H 110 H Respiratory Rate 22 22 Blood Pressure [Right Arm] 132/101 H 126/91 H 110/74 Blood Pressure Mean [Right Arm] 111 102 86 Blood Pressure Source [Right Arm] Automatic Cuff Blood Pressure Position [Right Arm] Sitting Sitting 02 Sat by Pulse Oximetry 94 L 96 Oxygen Delivery Method Room Air - Lab Data Lab Results 05/10/19 13:51: WBC 20.6 H*, RBC 5.43 H, Hgb 17.2 H, Hct 51.5 H, MCV 94.9, MCH 31.7 H, MCHC 33.4, RDW 15.0, Plt Count 439 H, MPV 7.8, Neut % (Auto) 86.6 H, Lym ph % (Auto) 8.9 L, [place] % (Auto) 3.6, Eos % (Auto) 0.7, Baso % (Auto) 0.2, Neut # (Auto) 17.6 H, Lymph # (Auto) 1.8, [place] # (Auto) 0.7, Eos # (Auto) 0.1, Baso # (Auto) 0.1, Total Counted 100, Neutrophils % (Manual) 84 H, Lymphocytes % (Ma nual) 15, Monocytes % (Manual) 1 L, Platelet Estimate Normal, RBC Morphology Normal 05/10/19 13:51: Sodium 140, Potassium 3.2 L, Chloride 98, Carbon Dioxide 21, Anion Gap 24.2 H, BUN 6 L, Creatinine 0.94, Estimated Creat Clear 65, Estimated GFR 61, Est GFR ( Amer) 74, Glucose 148 H, Calcium 10.1, Total Bilirubin 0.3, AST 24, ALT 36, Alkaline Phosphatase 113, Total Protein 7.7 D, Albumin 3.5, Globulin 4.2 H, Albumin/Globulin Ratio 0.8 L, Plasma/Serum Alcohol 152 H 05/10/19 13:51: Amylase 60, Lipase 110 05/10/19 13:51: Magnesium 1.0 L 05/10/19 15:30: Lactate 7.1 H 05/10/19 15:30: Troponin I < 0.02, TSH 0.35 L D 05/10/19 17:05: Urine Color Yellow, Urine Appearance Clear, Urine pH 6.5, Ur Specific [place] 1.010, Urine Protein Negative, Urine Glucose (UA) Negative, Urine Ketones Negative, Urine Blood Trace-i, Urine Nitrate Negative, Urine Bilirubin Negative, Urine Urobilinogen 0.2, Ur Leukocyte Esterase Negative, Urine RBC Occasional, Urine WBC Occasional, Ur Squamous Epith Cells 10-20, Urine Bacteria None 05/10/19 17:05: Urine Opiates Screen Negative, Urine Methadone Screen Negative, Ur Barbituates Screen Positive H, Ur Phencyclidine Scrn Negative, Ur Amphetamines Screen Negative, U Benzodiazepines Scrn Positive H, Urine Cocaine Screen Negative, U Marijuana (THC) Screen Negative Result diagrams: 05/10/19 13:51 05/10/19 13:51 Orders (Tests/Meds): ED MEDICATIONS Generic Name Dose Route Start Last Admin Trade Name Freq PRN Reason Stop Dose Admin Sodium Chloride 1,000 mls @ 999 mls/hr 05/10/19 14:00 05/10/19 18:33 Sod Chlor 0.9% 1000ml Bag IV 05/10/19 15:00 Not Given .Q1H1M PATRICA Sodium Chloride 890 mls @ 999 mls/hr 05/10/19 16:00 05/10/19 16:01 Sod Chlor 0.9% 1000ml Bag IV 05/10/19 16:53 999 mls/hr .Q54M PATRICA Administration Multivitamins 10 ml/ Thiamine 1,015 mls @ 150 mls/hr 05/10/19 16:45 05/10/19 17:08 HCl 100 mg/ Magnesium Sulfate IV 05/10/19 23:30 150 mls/hr 2 gm/ Lactated Ringer's .Q6H46M PATRICA Administration Piperacillin Sod/Tazobactam 50 mls @ 100 mls/hr 05/10/19 17:30 05/10/19 17:48 Sod 3.375 gm/ Sodium Chloride IV 05/24/19 17:29 100 mls/hr Q6H PATRICA Administration Protocol Vancomycin HCl 1,000 mg/ 250 mls @ 125 mls/hr 05/10/19 17:28 05/10/19 18:00 Sodium Chloride IV 05/10/19 19:27 125 mls/hr ONCE ONE Administration Sodium Chloride 10 ml 05/10/19 17:28 Sodium Chloride 0.9% 10ml Vial IV 06/09/19 17:27 NEEDED PRN to Dilute Lorazepam inj Sodium Chloride 10 ml 05/10/19 18:33 Sodium Chloride 0.9% 10ml Vial IV 06/09/19 18:32 NEEDED PRN dilute protonix Discontinued Medications Generic Name Dose Route Start Last Admin Trade Name Johann PRN Reason Stop Dose Admin Folic Acid 1 mg 05/10/19 16:44 05/10/19 17:07 Folic Acid 1mg Tablet PO 05/10/19 16:45 1 mg ONCE ONE Administration Magnesium Sulfate 2 gm/ Sodium 104 mls @ 100 mls/hr 05/10/19 17:27 05/10/19 18:18 Chloride IV 05/10/19 18:29 Not Given ONCE ONE Sodium Chloride 1,910 mls @ 955 mls/hr 05/10/19 16:00 05/10/19 16:00 Sod Chlor 0.9% 1000ml Bag 30 ml/kg infuse over 2 hr (1910 ml) 05/10/19 17:59 955 mls/hr IV Administration .Q2H ONE Ioversol 75 ml 05/10/19 16:49 05/10/19 16:51 Rad-Optiray 350 100ml Vial IV 05/10/19 16:50 75 ml ONCE ONE Administration Protocol Lorazepam 1 mg 05/10/19 17:28 05/10/19 17:39 Ativan 2mg/Ml Vial IV 05/10/19 17:29 1 mg ONCE ONE Administration Ondansetron HCl 4 mg 05/10/19 13:53 05/10/19 13:54 Zofran 4mg/2ml Vial IV 05/10/19 13:54 4 mg ONCE ONE Administration Ondansetron HCl 4 mg 05/10/19 17:21 05/10/19 17:39 Zofran 4mg/2ml Vial IV 05/10/19 17:22 4 mg ONCE ONE Administration Pantoprazole Sodium 40 mg 05/10/19 18:33 Protonix 40mg Vial IV 05/10/19 18:34 ONCE ONE Potassium Chloride 40 meq 05/10/19 17:29 05/10/19 18:00 Klor-Con 20meq Tablet PO 05/10/19 17:30 40 meq ONCE ONE Administration Promethazine HCl 25 mg 05/10/19 15:58 05/10/19 16:00 Phenergan 25mg/Ml 1ml Vial IV 05/10/19 15:59 25 mg ONCE ONE Administration Sodium Chloride 25 ml 05/10/19 15:58 05/10/19 16:00 Sod Chlor 0.9% 25ml Bag IV 05/10/19 15:59 25 ml ONCE ONE Administration Sodium Chloride 10 ml 05/10/19 16:49 05/10/19 16:51 Rad-Saline Flush 10ml Syringe IV 05/10/19 16:50 10 ml ONCE ONE Administration ORDERS Category Date Time Status Chest XR -- portable [XR chest portable] Stat Exams 05/10/19 17:31 Taken Free T4 (Free Thyroxine) Stat Lab 05/10/19 13:51 Received Influenza A&B Antigens, Rapid [Rapid Influenza A&B Lab 05/10/19 17:32 Ordered Antigens] Stat Troponin I Q3H Lab 05/10/19 20:45 Ordered Troponin I Q3H Lab 05/10/19 23:45 Ordered Blood Culture Stat Micro 05/10/19 15:30 Received EKG Request [ECG Request by /Roz] Stat Y 05/10/19 17:39 Ordered - CT Data CT Scan: Abdomen, Pelvis Time Received: 18:16 Findings Narrative: [place] [id number] [place] [address] [address] Scan Report Signed Patient: Josie Hayden MR#: [id number] : 1960 Acct:[id number] Age/Sex: 58 / F ADM Date: 05/10/19 Loc: ER Attending Dr: Ordering Physician: Nadira Delgadillo III, DO Date of Service: 05/10/19 Procedure(s): CT abdomen pelvis w con Accession Number(s): [id number] cc: Jean Claude Mckeon ; Nadira Delgadillo III, DO; Tres Magallanes ~ Procedure: CT ABDOMEN PELVIS W CON Patient Age:58Y CLINICAL INDICATION: abd pain vomiting since last night with mid abdominal pain COMPARISON: [facility]/O MRI-L-SPINE W/O from 11/12/2014 TECHNIQUE: Axial images obtained with sagittal and coronal reformats. All CT scans at the facility use one or more dose reduction, viz: automated exposure control, ma/kV adjustment per patient size (including targeted exams where dose is matched to indication, i.e. head), or iterative reconstruction technique. FINDINGS: Lower thorax: No acute finding ABDOMEN: Liver: Ovoid low-density area seen at the posterior dome of the liver it measures soft tissue rather than fluid density although could be a hyperdense cyst but.. Question scant, early peripheral enhancement. Nonspecific mass at this point, could reflect hemangioma but other entities would need to be excluded particular in this age patient.. If no prior outside studies available for comparison a follow-up ultrasound would be suggested as next step. Hemangioma protocol follow-up CT as outpatient may be of benefit subsequent if not cystic in character Gallbladder: Nondistended. No radio opaque stones. Common duct normal to upper normal. Question mild dilatation of pancreatic duct Pancreas: No masses.. No fluid collections or discrete inflammation.. Spleen: unremarkable Adrenals: . left adrenal with slight nodularity: Suspect 11 X 12 mm nodule inferiorly with probable 11 mm nodule superiorly as well as. These are best seen on the coronal view 36-39 tract ====== no obstructive uropathy. Kidneys with satisfactory enhancement. ureters unremarkable. PELVIS: Hysterectomy. No adnexal masses Urinary bladder: 6 mm bladder stone is seen along the inferior left posterior aspect of the urinary bladder. No significant bladder wall thickening.. Again the ureters the the are unremarkable with some small phleboliths at the pelvic basin bilaterally but no ureteral stones otherwise seen. GI tract. ======= Rectum: Appears wall thickening rectum which continue to the anal verge-requires correlation. Generous soft tissue appearance about anal verge and introitus warrant follow-up correlation Remainder of the colon shows some mild wall thickening which I suspect reflects lack of distention in the other regions.... No liquid stool or diarrhea to raise further concern regarding colitis. Right colon and cecum demonstrates some mild nonspecific fatty wall thickening. Small bowel normal, unremarkable. Terminal ileum satisfactory Appendix surgically removed STOMACH: Moderately distended fluid-filled stomach. Suggestion slight enhancement of inner mucosa stomach. Suggestion mild wall thickening antrum towards commuter pilot and pylorus region coronal image 25. Also question some mild wall thickening the duodenum. Nonspecific but findings could reflect gastritis and duodenitis possibly-. Correlation required -- Peritoneum: No abnormal fluid collections. No obvious inflammatory changes. No free air. Lymph nodes: No significant enlarged lymph nodes apparent. Vasculature: A minimal calcified plaque of the aorta. No aneurysm... Bones: Prominent focal concavity the superior endplate L2 since 2015 MR. This reflects interval generous Schmorl's node/, intravertebral disc herniation into the of L2 vertebra. L4/5. Pronounced central canal stenosis due to prominent disc bulge and prominent posterior element hypertrophy. L5/S1 disc bulge slightly more evident to the left. IMPRESSION: 1. question gastritis/duodenitis. Requires clinical correlation Moderately distended fluid-filled stomach, mild mucosal enhancement. Suggestion of wall thickening at the distal antrum, pylorus into the duodenal bulb 2. Urinary bladder stone 6 mm size-with no additional urinary tract calculi or findings. Warrants correlation with urinalysis 3.. suggestion of some wall thickening at the rectum towards anal verge. This requires correlation as well. Suggest follow-up and consider colonoscopy if 1 has not been performed past 5 years no liquid stool or diarrhea evident to further support current colitis 4.. There is a 3 cm low-density mass posterior dome of liver. Nonspecific mass at this point.-Possible benign hemangioma but wants ultrasound follow-up (and if solid not cystic a follow-up CT abdomen hemangioma protocol warranted) 5. Prominent Schmorl's node has developed at L2 superior endplate since previous MR 2015. Prominent spinal stenosis L4/5 again observed Dictated by: Zechariah Mckeon MD 05/10/2019 17:44 Electronically signed by Zechariah Mckeon MD in [place] 05/10/2019 17:44 - ECG Data Tracing #1 I reviewed this ECG and interpreted as documented below: Medical Decision Narrative: 18:40 patient evaluated and worked up. I reviewed all of her labs, EKG, chest x-ray, and CT of abdomen and pelvis. Patient was found to have a lower potassium of 3.2. She received 40 mEq of potassium p.o. Patient's white blood cell count was 20.6 and her lactate was 7.1. Patient was also tachycardic, so she received 2 L of normal saline IV fluid bolus for a 30 mg/kg total. I subsequently ordered a banana bag at 500 cc/h in light of her alcohol abuse and alcohol level of 152. Patient also has hypomagnesemia at 1.0 and she will received 2 g of magnesium through her banana bag. Patient's UA was negative. Her drug screen was positive for barbiturates and benzodiazepines which she has been on at home. I did order Ativan 1 mg IV push for her anxiety and agitation which did seem to help. I have discussed this patient's case with Dr. Woody who is covering for Dr. Smith who takes care of this patient primary care Dr. Magallanes's patients. He is agreed to accept the care and admission of this patient for Dr. Smith. I discussed results of work-up, diagnosis and care plan with patient. She understands and all questions answered. Patient will now be admitted. General Adult HPI - General Chief complaint: Nausea/Vomiting/Diarrhea Stated complaint: Vomiting, abdominal pain Time Seen by Provider: 05/10/19 16:44 Mode of Arrival: Ambulatory Source of Information: Patient Limitations: No Limitations Description of Symptoms (Recalled from ER Triage Doc. by RN): vomiting since last night - History of Present Illness HPI narrative: Patient is here in the emergency room from home for evaluation complaining having nausea and vomiting. Patient states she began to get nauseated and vomit last night. Patient has vomited innumerable times. She now states that she is only dry heaving. She denies having any diarrhea. She has had some generalized abdominal discomfort which she blames on all of her straining to vomit. No chest pain no shortness of breath. No cough. She denies sore throat or ear pain. Patient does appear to be anxious and mildly agitated. She states that she takes Klonopin at home for her anxiety. Patient denies using drugs but admits to drinking alcohol. She states she last drank alcohol 2 days ago. Patient apparently has not had a fever. - Related Data Home Medications Medication Instructions Recorded Confirmed estradiol 1 mg tablet 1 mg PO DAILY 12/24/17 04/10/19 Darifenacin Hydrobromide 7.5 mg PO HS 04/10/19 04/10/19 [Darifenacin ER] Mirtazapine 30 mg PO DAILY 04/10/19 04/10/19 Pregabalin [Lyrica 300mg Cap] 300 mg PO BID 04/10/19 04/10/19 clonazePAM [Clonazepam] 1 mg PO TID 04/10/19 04/10/19 risperiDONE [Risperdal] 1 mg PO DAILY 04/10/19 04/10/19 Allergies Allergy/AdvReac Type Severity Reaction Status Date / Time No Known Allergies Allergy Unverified 02/20/19 09:13 [facility] History - Hepatitis A Screen Drug use history?: No High risk sexual behaviors?: No History of sexually transmitted infection?: No Currently employed?: No Childcare worker?: No Do you have indoor plumbing?: Yes Do you have electricity?: Yes Attestation statement:: This patient has been screened for Hepatitis A risk factors. I have reviewed the patient's past medical history: Yes Medical History: Reports:: Chronic Obstructive Pulmonary Disease (COPD), Depression, Gastroesophageal Reflux Disease(GERD) Denies:: Cancer, Diabetes Mellitus Type 1, Diabetes Mellitus Type 2, Internal Pacemaker, MRSA, Seizures Other Medical History: Reports: Hormone Therapy Comment: Bladder Issues Other Surgeries: Yes: Cardiac Catheterization, Hysterectomy-Total, Tubal Ligation, Other. No: Pacemaker Amputation: No Fractures: No Comment: polyps removed from vocal cords - Social History Educational Level: Completed High School Smoking Status: Current every day smoker Tobacco Type: cigarettes # Packs/Day (cigarettes): 1 Alcohol Intake: current Alcohol Intake Frequency:: a few times a week Substance Use Type: denies use Occupational Status: unemployed Housing: house Household Members: family - Psychiatric History Pschychiatric History:: Reports:: Depression Family Hx:: Coronary Artery Disease, Heart Attack Comment: Paternal Grandmother- of MD at 62 ROS Obtained: Yes All systems reviewed & no additional complaints - Constitutional Constitutional: Reports system reviewed and no additional complaints, except as docu, Reports as per HPI, Reports body ache, Reports chills, Denies fever(s) - Eyes Eyes: Reports system reviewed and no additional complaints, except as docu - ENT Ears, Nose, Mouth, and Throat: Reports system reviewed and no additional complaints, except as docu - Cardiovascular Cardiovascular: Reports system reviewed and no additional complaints, except as docu, Reports as per HPI, Denies chest pain, Denies diaphoresis, Denies dyspnea, Reports rapid heart rate - Respiratory Respiratory: Yes system reviewed and no additional complaints, except as docu, Yes as per HPI, No chest congestion, No cough, No dyspnea - Gastrointestinal Gastrointestingal: Reports: system reviewed and no additional complaints, except as docu, as per HPI, nausea, vomiting. Denies: diarrhea - Genitourinary Female Genitourinary: Reports system reviewed and no additional complaints, except as docu - Musculoskeletal Musculoskeletal: Reports system reviewed and no additional complaints, except as docu - Integumentary/Breasts Skin/Breast: Reports system reviewed and no additional complaints, except as docu - Neurologic Neurologic: Reports system reviewed and no additional complaints, except as docu - Endocrine Endocrine: Reports system reviewed and no additional complaints, except as docu - Hematologic/Lymphatic Henatologic/Lymphatic: Reports system reviewed and no additional complaints, except as docu - Allergic/Immunologic Allergic/Immunologic: Reports system reviewed and no additional complaints, except as docu Physical Exam - General General appearance: alert, anxious - Head Head exam: atraumatic, normocephalic, normal inspection - Eye Eye exam: Present: PERRL, EOMI - ENT ENT exam: Present: normal exam, normal oropharynx, mucous membranes moist - Neck Neck exam: Present: trachea midline - Chest Chest inspection: Present: symmetric chest wall rise - Respiratory Respiratory exam: Present: normal lung sounds bilaterally (Lungs are clear to auscultation but diminished equally bilaterally.). Absent: respiratory distress, wheezes - Cardiovascular Cardiovascular exam: Present: tachycardia. Absent: systolic murmur, rubs, gallop, clicks - Abdominal Exam Abdominal exam: Present: soft, tenderness (Underlies tenderness on palpation without rebound.), normal bowel sounds. Absent: guarding, rebound, rigidity, Valiente's sign, tenderness at McBurney's Point - Extremities Exam Extremities exam: Present: normal inspection, full ROM - Back Exam Back exam: Present: normal inspection. Absent: CVA tenderness (R), CVA tendern ess (L) - Neurological Exam Neurological exam: Present: alert, oriented X3, CN II-XII intact - Psychiatric Psychiatric exam: Present: agitated, anxious - Skin Skin exam: Present: warm, dry, intact. Absent: rash, diaphoresis
[2019-05-10 17:09] LABS: Appearance,Urine CLEAR (Clear); Bilirubin,Urine Negative (Negative); Blood, Urine TRACE-I (Negative); Color,Urine YELLOW (Yellow); Glucose,Urine (UA) Negative (Negative); Ketones,Urine Negative (Negative); Leukocyte Esterase,Urine Negative (Negative); Microscopic, Urine URINE MICROSCOPIC (MICROSCOPIC); PH,Urine 6.5 (5.0-8.5); Protein,Urine Negative (Negative); Urobilinogen,Urine 0.2 EU/dl (0.2)
[2019-05-10 17:16] LABS: RBC,Urine Occasional #/hpf (0-3); WBC,Urine Occasional #/hpf (0-3)
[2019-05-10 17:18] LABS: Amphetamine/Metha Screen,Urine Negative ng/mL (<1000); Barbiturates Screen,Urine Positive ng/mL (<200); Benzodiazepines Screen,Urine Positive ng/mL (<200); Cannabinoid Screen,Urine Negative ng/mL (<50); Cocaine Screen,Urine Negative ng/mL (<300); Methadone Screen,Urine Negative ng/mL (<300); Opiate Screen,Urine Negative ng/mL (<300); Phencyclidine Screen,Urine Negative ng/mL (<25)
[2019-05-10 18:11] LABS: Thyroid Stimulating Hormone 0.35 uIU/ml (0.358-3.740)
[2019-05-10 19:08] LABS: Activated Partial Thrombo Time 23.7 seconds (23.6-34.0); INR 0.99 (0.9-1.1); Prothrombin Time 10.3 seconds (9.4-11.8)
[2019-05-11 05:59] LABS: Basophils % 0.4 % (0.1-2.0); Eosinophils # 0.1 K/mm3 (0.0-0.4); Eosinophils % 1.4 % (0.1-12.0); Hematocrit 39.1 % (37.0-47.0); Lymphocytes % 25.5 % (10-50); Mean Corpuscular HGB Conc 32.4 g/dL (31.8-35.4); Mean Corpuscular Volume 98.5 fl (81-99); Mean Platelet Volume 8.2 fl (7.4-10.4); Monocytes # 0.7 K/mm3 (0.1-1.0); Monocytes % 8.3 % (1.7-9.3); Neutrophils # 5.1 K/mm3 (1.8-7.8); Neutrophils % 64.4 % (37.0-80.0); Platelet Count 291 K/mm3 (142-424); Red Blood Count 3.97 M/mm3 (4.20-5.40); Red Cell Distribution Width 14.9 % (11.5-17.5); White Blood Count 7.9 K/mm3 (4.8-10.8)
[2019-05-11 06:02] LABS: Hemoglobin 12.7 g/dL (12.2-16.2)
[2019-05-11 06:19] LABS: Albumin Level 2.4 gm/dL (3.4-5.0); Albumin/Globulin Ratio 0.9 (1.1-1.8); Anion Gap 9.2 mEq/L (5-15); Bilirubin,Total 0.6 mg/dL (0.2-1.0); Globulin 2.8 gm/dl (1.3-3.2); Phosphorous 3.8 mg/dL (2.4-4.9); Total Protein,Serum 5.2 gm/dL (6.4-8.2)
--- NOTE | 2019-05-11 07:45 | Pharmacy Consult Notes ---
[facility] Pharmacy VTE Monitoring - Patient Demographics Admission date: 05/10/19 Report Date: 05/11/19 Time: 07:45 Allergies/Adverse Reactions: Patient Allergies No Known Allergies Allergy (Unverified 02/20/19 09:13) Height: 1.65 m Weight: 63.219 kg Patient Problems: Current Active Problems Sepsis (Acute) Leukocytosis (Acute) Alcohol abuse (Acute) Alcohol intoxication (Acute) Volume depletion (Acute) Hypomagnesemia (Acute) Acute anxiety (Acute) Agitation (Acute) Duodenitis (Acute) Gastritis (Acute) - VTE Risk Labs: VTE Related Lab Results Hgb 12.7 g/dL (12.2-16.2) D 05/11/19 05:48 Hct 39.1 % (37.0-47.0) 05/11/19 05:48 Plt Count 291 K/mm3 (142-424) D 05/11/19 05:48 PT 10.3 seconds (9.4-11.8) 05/10/19 13:51 INR 0.99 (0.9-1.1) 05/10/19 13:51 APTT 23.7 seconds (23.6-34.0) 05/10/19 13:51 BUN 6 mg/dL (7-18) L 05/11/19 05:48 Creatinine 0.76 mg/dL (0.55-1.02) 05/11/19 05:48 Estimated Creat Clear 80 mL/min (50-200) 05/11/19 05:48 Was VTE Risk Assessment Performed: Yes VTE Score: 4 VTE Risk Level: Low Risk - Prophylaxis VTE Prophylaxis Ordered?: Yes Types of VTE Prophylaxis: TEDS Knee High Location of Applied Device: Bilateral Lower Extremeties - VTE Diagnosis Confirmed Treatment or plan recommended: Continue Current Treatment
--- NOTE | 2019-05-11 08:29 | History & Physical Report ---
*Admission Date: 05/10/19 *Chief complaint: Vomiting, abdominal pain *History of present illness: 58-year-old white female with long history of recurrent alcoholism, admitted earlier last month with similar complaints of dehydration, vomiting and electrolyte instability because of alcohol intoxication. Similar pattern occurred yesterday, presented to the ER with abdominal pain, found to have blood alcohol level of 150 even though she denied drinking for 24 hours. Found to have hypocalcemia, hypokalemia and dehydration, admitted to hospital. She reports that she is still nauseated, reports that she is very shaky and has a lot of nonspecific abdominal pain. [facility] History I have reviewed the patient's past medical history: Yes Medical History: Reports:: Chronic Obstructive Pulmonary Disease (COPD), Depression, Gastroesophageal Reflux Disease(GERD) Denies:: Cancer, Diabetes Mellitus Type 1, Diabetes Mellitus Type 2, Internal Pacemaker, MRSA, Seizures *Have you ever received a pneumonia vaccine?: No *Have you received a flu vaccine this season?: Yes Other Medical History: Reports: Anemia, Fibromyalgia, Hormone Therapy (ESTROGEN) Comment:: Alcohol abuse Other Surgeries: Yes: Appendectomy, Cardiac Catheterization, Hysterectomy-Total, Tubal Ligation, Other. No: Pacemaker Amputation: No Fractures: No - *Social History Educational Level: Completed GED/General Educational Development Smoking Status: Current every day smoker Tobacco Type: cigarettes # Packs/Day (cigarettes): 1 Alcohol Intake: current Alcohol Intake Frequency:: a few times a month Substance Use Type: denies use *Occupational Status:: unemployed Housing: house Household Members: family *Travel in the last 8 weeks: None - Psychiatric History Pschychiatric History:: Reports:: Depression Family Hx:: Coronary Artery Disease, Heart Attack Review of Systems - Review of Systems Review of systems:: pertinent systems reviewed and negative unless documented below Meds Home Medications Medication Instructions Recorded Confirmed Type estradiol 1 mg tablet 1 mg PO DAILY 12/24/17 05/10/19 History Darifenacin Hydrobromide 7.5 mg PO DAILY 04/10/19 05/10/19 History [Darifenacin ER] Mirtazapine 30 mg PO DAILY 04/10/19 05/10/19 History Pregabalin [Lyrica 300mg Cap] 300 mg PO BID 04/10/19 05/10/19 History clonazePAM [Clonazepam] 1 mg PO DAILY 04/10/19 05/10/19 History risperiDONE [Risperdal] 1 mg PO DAILY 04/10/19 05/10/19 History Albuterol Sulfate [Albuterol HFA 1 - 2 puffs IH Q4-6H PRN 05/10/19 05/10/19 History Inhaler] clonazePAM [Clonazepam] 2 mg PO HS 05/10/19 05/10/19 History Allergies Allergy/AdvReac Type Severity Reaction Status Date / Time No Known Allergies Allergy Unverified 02/20/19 09:13 Exam Vital signs and Labs for Last 24 Hours: Temp Pulse Resp BP Pulse Ox 98.4 F 80 17 96/66 L 100 05/11/19 04:00 05/11/19 08:00 05/11/19 04:00 05/11/19 04:00 05/11/19 04:00 Laboratory Results - last 24 hr 05/10/19 13:51: WBC 20.6 H*, RBC 5.43 H, Hgb 17.2 H, Hct 51.5 H, MCV 94.9, MCH 31.7 H, MCHC 33.4, RDW 15.0, Plt Count 439 H, MPV 7.8, Neut % (Auto) 86.6 H, Lymph % (Auto) 8.9 L, [place] % (Auto) 3.6, Eos % (Auto) 0.7, Baso % (Auto) 0.2, Neut # (Auto) 17.6 H, Lymph # (Auto) 1.8, [place] # (Auto) 0.7, Eos # (Auto) 0.1, Baso # (Auto) 0.1, Total Counted 100, Neutrophils % (Manual) 84 H, Lymphocytes % (Manual) 15, Monocytes % (Manual) 1 L, Platelet Estimate Normal, RBC Morphology Normal 05/10/19 13:51: Sodium 140, Potassium 3.2 L, Chloride 98, Carbon Dioxide 21, Anion Gap 24.2 H, BUN 6 L, Creatinine 0.94, Estimated Creat Clear 65, Estimated GFR 61, Est GFR ( Amer) 74, Glucose 148 H, Calcium 10.1, Total Bilirubin 0.3, AST 24, ALT 36, Alkaline Phosphatase 113, Total Protein 7.7 D, Albumin 3.5, Globulin 4.2 H, Albumin/Globulin Ratio 0.8 L, Plasma/Serum Alcohol 152 H 05/10/19 13:51: Amylase 60, Lipase 110 05/10/19 13:51: Magnesium 1.0 L 05/10/19 13:51: Free T4 1.20 05/10/19 13:51: PT 10.3, INR 0.99, APTT 23.7 05/10/19 15:30: Lactate 7.1 H 05/10/19 15:30: Troponin I < 0.02, TSH 0.35 L D 05/10/19 17:05: Urine Color Yellow, Urine Appearance Clear, Urine pH 6.5, Ur S pecific Ram[place] 1.010, Urine Protein Negative, Urine Glucose (UA) Negative, Urine Ketones Negative, Urine Blood Trace-i, Urine Nitrate Negative, Urine Bilirubin Negative, Urine Urobilinogen 0.2, Ur Leukocyte Esterase Negative, Urine RBC Occasional, Urine WBC Occasional, Ur Squamous Epith Cells 10-20, Urine Bacteria None 05/10/19 17:05: Urine Opiates Screen Negative, Urine Methadone Screen Negative, Ur Barbituates Screen Positive H, Ur Phencyclidine Scrn Negative, Ur Amphetamines Screen Negative, U Benzodiazepines Scrn Positive H, Urine Cocaine Screen Negative, U Marijuana (THC) Screen Negative 05/10/19 19:52: Troponin I < 0.02 05/10/19 19:52: Lactate 2.9 H 05/10/19 22:15: Troponin I < 0.02 05/10/19 22:15: Lactate 1.9 05/11/19 05:48: Sodium 142, Potassium 3.2 L, Chloride 105, Carbon Dioxide 31 D, Anion Gap 9.2, BUN 6 L, Creatinine 0.76, Estimated Creat Clear 80, Estimated GFR 78, Est GFR ( Amer) 94 D, Glucose 91 D, Calcium 8.0 L D, Phosphorus 3.8, Magnesium 1.6 D, Total Bilirubin 0.6, AST 12 L D, ALT 23 D, Alkaline Phosphatase 84, Total Protein 5.2 L D, Albumin 2.4 L D, Globulin 2.8, Albumin/Globulin Ratio 0.9 L 05/11/19 05:48: WBC 7.9 D, RBC 3.97 L D, Hgb 12.7 D, Hct 39.1, MCV 98.5, MCH 31.9 H, MCHC 32.4, RDW 14.9, Plt Count 291 D, MPV 8.2, Neut % (Auto) 64.4, Lymph % (Auto) 25.5, [place] % (Auto) 8.3, Eos % (Auto) 1.4, Baso % (Auto) 0.4, Neut # (Auto) 5.1, Lymph # (Auto) 2.0, [place] # (Auto) 0.7, Eos # (Auto) 0.1, Baso # (Auto) 0.0 I & O for Last 24 hours: Intake & Output 05/08/19 05/09/19 05/10/19 05/11/19 11:59 11:59 11:59 11:59 Intake Total 986 / 986 Balance 986 / 986 Weight 139 lb 6 oz Narrative: Patient is awake, alert, oriented x2, a little fuzzy about the date but reorients quickly. No scleral icterus, no jaundice. Appears older than her stated age. Slight fine tremor to her extremities consistent with alcohol withdrawal. Lungs in the anterior sánchez are clear, heart rate regular. Abdomen soft, diffusely tender but no deep tenderness, rebound, guarding or peritoneal signs. No periumbilical or flank bruising. No edema, clubbing or cyanosis. Assessment and Plan (1) Acute anxiety Current visit: Yes Status: Acute Category: Medical Code(s): F41.9 - Anxi ety disorder, unspecified Restart as needed 3 times daily clonazepam. (2) Alcohol abuse Current visit: Yes Status: Acute Category: Medical Code(s): F10.10 - Alcohol abuse, uncomplicated Alcohol withdrawal protocol. Continue IV fluids and vitamin supplementation as ordered. (3) Alcohol intoxication Current visit: Yes Status: Acute Qualifiers: Complication of substance-induced condition: uncomplicated Qualified Code(s): F10.920 - Alcohol use, unspecified with intoxication, uncomplicated Category: Medical Code(s): F10.929 - Alcohol use, unspecified with intoxication, unspecified (4) Duodenitis Current visit: Yes Status: Acute Category: Medical Code(s): K29.80 - Duodenitis without bleeding Supportive care, clear liquids (5) Hypomagnesemia Current visit: Yes Status: Acute Category: Medical Code(s): E83.42 - Hypomagnesemia Electrolyte instability noted. Replace as indicated (6) Leukocytosis Current visit: Yes Status: Acute Qualifiers: Leukocytosis type: unspecified Qualified Code(s): D72.829 - Elevated white blood cell count, unspecified Category: Medical Code(s): D72.829 - Elevated white blood cell count, unspecified Resolving after IV fluids
[2019-05-12 06:00] LABS: Basophils # 0.1 K/mm3 (0-0.2); Basophils % 0.7 % (0.1-2.0); Eosinophils # 0.2 K/mm3 (0.0-0.4); Eosinophils % 2.4 % (0.1-12.0); Hematocrit 38.9 % (37.0-47.0); Hemoglobin 12.5 g/dL (12.2-16.2); Lymphocytes # 2.8 K/mm3 (0.7-4.5); Lymphocytes % 36.5 % (10-50); Mean Corpuscular HGB Conc 32.1 g/dL (31.8-35.4); Mean Corpuscular Volume 99.5 fl (81-99); Mean Platelet Volume 8.2 fl (7.4-10.4); Monocytes # 0.4 K/mm3 (0.1-1.0); Monocytes % 5.4 % (1.7-9.3); Neutrophils # 4.2 K/mm3 (1.8-7.8); Platelet Count 295 K/mm3 (142-424); Red Blood Count 3.91 M/mm3 (4.20-5.40); Red Cell Distribution Width 14.9 % (11.5-17.5); White Blood Count 7.6 K/mm3 (4.8-10.8)
[2019-05-12 06:18] LABS: Albumin Level 2.3 gm/dL (3.4-5.0); Albumin/Globulin Ratio 0.8 (1.1-1.8); Anion Gap 9.5 mEq/L (5-15); Bilirubin,Total 0.3 mg/dL (0.2-1.0); Calcium 7.4 mg/dL (8.5-10.1); Globulin 2.8 gm/dl (1.3-3.2); Total Protein,Serum 5.1 gm/dL (6.4-8.2)
--- NOTE | 2019-05-12 09:10 | Discharge Summary ---
General - General Admission date:: 05/10/19 Discharge date: 05/12/19 HPI HPI: 58-year-old white female with long history of recurrent alcoholism, admitted earlier last month with similar complaints of dehydration, vomiting and electrolyte instability because of alcohol intoxication. Similar pattern occurred yesterday, presented to the ER with abdominal pain, found to have blood alcohol level of 150 even though she denied drinking for 24 hours. Found to have hypocalcemia, hypokalemia and dehydration, admitted to hospital. She reports that she is still nauseated, reports that she is very shaky and has a lot of nonspecific abdominal pain. Hospital Course Hospital Course: 58-year-old female with alcohol abuse disorder. Continues to deny daily drinking during admission however does state that she drinks 2 glasses of tequila many days throughout the week. When quantified this is approximately 16+ ounces of tequila a day. Has responded well to oxazepam with good control of her tremors and withdrawal symptoms. No seizure activity during hospitalization. Patient set up with [facility] for [facility]. Plan to give single dose of Librium 25 mg at approximately 9:30 AM prior to discharge with plan for family taking her [facility]" for her appointment to discuss alcohol addiction treatment in the outpatient setting. In patient's home meds she has clonazepam ordered, did not order any new benzodiazepines to decrease risk for withdrawal given that she has an order from her primary care for Klonopin and is going to outpatient treatment upon discharge. Setting up family member transporting patient to her appointment. Additionally will continue Omnicef for a total of 7 days of antibiotics as she came in with an elevated white count meeting criteria for sepsis. Had teo discussion on day of discharge with patient about being honest about her use and how her continued alcohol addiction and usage has great impact on her overall health and longevity. She stated understanding. Denies tremor, nausea, vomiting, diarrhea, headache. No shortness of breath. Medically stable for discharge with close outpatient follow-up already arranged. Objective Vital signs: Temp Pulse Resp BP Pulse Ox 98.3 F 67 20 116/79 98 05/12/19 08:00 05/12/19 08:00 05/12/19 08:00 05/12/19 08:00 05/12/19 08:00 Narrative: Patient is awake, alert, oriented x3, no tremor or confusion. No scleral icterus, no jaundice. Appears older than her stated age. Lungs in the anterior sánchez are clear, no wheeze heart rate regular Abdomen soft, interval improvement in non focal tenderness, no rebound, guarding or peritoneal signs. No periumbilical or flank bruising. No edema, clubbing or cyanosis. Results Labs on day of discharge: Labs from last 24 hours 05/12/19 05/12/19 05/11/19 05:44 05:44 11:42 WBC 7.6 RBC 3.91 L Hgb 12.5 Hct 38.9 MCV 99.5 H MCH 31.9 H MCHC 32.1 RDW 14.9 Plt Count 295 MPV 8.2 Neut % (Auto) 55.0 Lymph % (Auto) 36.5 [place] % (Auto) 5.4 Eos % (Auto) 2.4 Baso % (Auto) 0.7 Neut # (Auto) 4.2 Lymph # (Auto) 2.8 [place] # (Auto) 0.4 Eos # (Auto) 0.2 Baso # (Auto) 0.1 Sodium 142 Potassium 3.5 Chloride 109 H Carbon Dioxide 27 Anion Gap 9.5 BUN 5 L Creatinine 0.67 Estimated Creat Clear 92 Estimated GFR 90 Est GFR ( Amer) 109 Glucose 106 Calcium 7.4 L Total Bilirubin 0.3 AST 14 L ALT 20 Alkaline Phosphatase 81 Total Protein 5.1 L Albumin 2.3 L Globulin 2.8 Albumin/Globulin Ratio 0.8 L Influenza Type A Ag Negative Influenza Type B Ag Negative DS: Diagnosis - Discharge Diagnosis (1) Acute anxiety Status: Acute (2) Alcohol abuse Status: Chronic (3) Alcohol intoxication Status: Acute (4) Duodenitis Status: Acute (5) Hypomagnesemia Status: Acute (6) Leukocytosis Status: Resolved Discharge Plan - Patient Discharge Instructions ACTIVITY: Continue current activity DIET: continue same diet Patient Instructions: Alcohol Use Disorder, DI for Alcohol Abuse, DI for Hypomagnesemia - Follow up Plan Follow up with: Tres Magallanes [Primary Care Provider] - Disposition: Home, [facility] Medications: Home Medications Medication Instructions Recorded Confirmed Type estradiol 1 mg tablet 1 mg PO DAILY 12/24/17 05/10/19 History Darifenacin Hydrobromide 7.5 mg PO HS 04/10/19 05/11/19 History [Darifenacin ER] Pregabalin [Lyrica 300mg Cap] 300 mg PO BID 04/10/19 05/10/19 History clonazePAM [Clonazepam] 1 mg PO TIDP PRN 04/10/19 05/11/19 History risperiDONE [Risperdal] 1 mg PO DAILY 04/10/19 05/10/19 History Albuterol Sulfate [Albuterol HFA 1 - 2 puffs IH Q4-6H PRN 05/10/19 05/10/19 History Inhaler] Fluoxetine HCl 20 mg PO DAILY 05/11/19 05/11/19 History Cefdinir [Omnicef 300mg Capsule] 300 mg PO BID 5 Days #10 cap 05/12/19 Rx Prescriptions/Medication Reconciliation: Continued estradiol 1 mg tablet 1 mg PO DAILY clonazePAM [Clonazepam] 1 mg PO TIDP PRN PRN Reason: Anxiety Pregabalin [Lyrica 300mg Cap] 300 mg PO BID Albuterol Sulfate [Albuterol HFA Inhaler] 1 - 2 puffs IH Q4-6H PRN PRN Reason: Shortness Of Breath Or Wheezing Fluoxetine HCl 20 mg PO DAILY Darifenacin Hydrobromide [Darifenacin ER] 7.5 mg PO HS risperiDONE [Risperdal] 1 mg PO DAILY - Problem Reconciliation Problems Reviewed?: Yes
== END 2019-05-12 10:32 | disposition home or self-care (01) ==
LOC: 2ND 13:27 → ER 13:27 → 2ND 20:05
PROVIDERS: ADMIT Family Medicine; ATTEND Internal Medicine Adolescent Medicine
CPT/HCPCS: 36415; 71010; 71045; 74177; 80053; 80305; 81001; 82150; 83605; 83690; 83735; 84100; 84439; 84443; 84484; 85007; 85025; 85610; 85730; 87040; 87275; 87276; 93005; 96365; 96366; 96367; 96375; 96376; 99285; G0378; J2405; J2543; J3370; Q9967

== ENCOUNTER 2019-06-12 06:52 | Observation (INO) ==
--- NOTE | 2019-06-12 07:03 | Emergency Department Note ---
ED Disposition Clinical Impression: Alcohol withdrawal Qualifiers: Complication of substance-induced condition: uncomplicated Qualified Code(s): F10.230 - Alcohol dependence with withdrawal, uncomplicated Chest pain Qualifiers: Chest pain type: precordial pain Qualified Code(s): R07.2 - Precordial pain Disposition: Admitted as Observation Condition on Discharge: Fair Referrals: Provider,Referral, [Referring] - - Critical Care Critical Care Time: No Attestation: On , the high probability of a clinically significant, sudden or life threatening deterioration of the following system(s) required my full and direct attention, intervention and personal management. The time I documented below is in addition to time spent performing reported procedures but includes the f ollowing listed in this critical care notation. Medical Decision Making - Ed Inquiry Pt receiving controlled substance: Yes Ed was queried for this patient: No Reason not queried -: Emergent pt cond-no time Risks and benefits of using a controlled substance: were not discussed with pt by me Vital Signs: 06/12/19 06:53 06/12/19 07:51 Temperature 98.6 F Temperature Source Oral Pulse Rate [Right] 81 78 Respiratory Rate 20 Blood Pressure [Right Arm] 135/83 129/67 Blood Pressure Mean [Right Arm] 100 87 02 Sat by Pulse Oximetry 96 96 Oxygen Delivery Method Room Air - Lab Data Lab Results 06/12/19 07:00: WBC 12.1 H, RBC 5.22, Hgb 16.5 H, Hct 50.9 H, MCV 97.6, MCH 31.6 H, MCHC 32.4, RDW 14.4, Plt Count 428 H, MPV 7.4, Neut % (Auto) 84.7 H, Lymph % (Auto) 10.0, [place] % (Auto) 4.5, Eos % (Auto) 0.3, Baso % (Auto) 0.5, Neut # (Auto) 10.2 H, Lymph # (Auto) 1.2, [place] # (Auto) 0.5, Eos # (Auto) 0.0, Baso # (Auto) 0.1 06/12/19 07:00: Sodium 138, Potassium 3.4 L, Chloride 99, Carbon Dioxide 27, Anion Gap 15.4 H, BUN 5 L, Creatinine 0.83, Estimated Creat Clear 67, Estimated GFR 70, Est GFR ( Amer) 85, Glucose 126 H, Calcium 9.6, Troponin I < 0.02, Plasma/Serum Alcohol 0 06/12/19 07:00: PT 10.1, INR 0.97, APTT 25.0 06/12/19 07:00: Magnesium 1.4 06/12/19 07:00: Total Bilirubin 0.6, Direct Bilirubin 0.2, Indirect Bilirubin 0.4, AST 18, ALT 21, Alkaline Phosphatase 110, Total Protein 7.2 D, Albumin 3.4 06/12/19 07:00: Lipase 146 Result diagrams: 06/12/19 07:00 06/12/19 07:00 Orders (Tests/Meds): ED MEDICATIONS Generic Name Dose Route Start Last Admin Trade Name Freq PRN Reason Stop Dose Admin Multivitamins 10 ml/ Thiamine 1,015 mls @ 150 mls/hr 06/12/19 07:30 06/12/19 08:01 HCl 100 mg/ Magnesium Sulfate IV 06/12/19 14:15 150 mls/hr 2 gm/ Lactated Ringer's .[id number] PATRICA Administration Sodium Chloride 10 ml 06/12/19 07:26 06/12/19 08:01 Sodium Chloride 0.9% 10ml Vial IV 07/12/19 07:25 10 ml NEEDED PRN Administration to Dilute Lorazepam inj Discontinued Medications Generic Name Dose Route Start Last Admin Trade Name Freq PRN Reason Stop Dose Admin Folic Acid 1 mg 06/12/19 07:24 06/12/19 08:01 Folic Acid 1mg Tablet PO 06/12/19 07:25 1 mg ONCE ONE Administration Lorazepam 2 mg 06/12/19 07:26 06/12/19 08:01 Ativan 2mg/Ml Vial IV 06/12/19 07:27 2 mg ONCE ONE Administration Ondansetron HCl 4 mg 06/12/19 07:24 06/12/19 08:01 Zofran 4mg/2ml Vial IV 06/12/19 07:25 4 mg ONCE ONE Administration ORDERS Category Date Time Status Chest XR -- portable [XR chest portable] Stat Exams 06/12/19 06:55 Taken Drug Screen,Urine Stat Lab 06/12/19 07:23 Ordered Troponin I Q3H Lab 06/12/19 10:00 Ordered Troponin I Q3H Lab 06/12/19 13:00 Ordered - Radiology Data #1 Image(s): Chest Image Reviewed: Yes I reviewed the patient's radiology image copd, NAD - ECG Data Tracing #1 EKG interpreted by Antonio Jara MD: Rhythm: sinus Rate: 82 [place]: normal Ectopy: none Conduction: normal ST Segment Changes: none T Wave Changes: none Q Waves: none No evidence of acute ischemia or injury Baseline artifact and wander present, but I consider the EKG adequate for accurate interpretation. - Physician Consults Physician Consulted: Dr. Smith Time: 08:07 Reason -: Admission Comment/Response: Agrees to admit the patient to the hospital. We discussed the patient's clinical information, including history, exam, laboratory and radiology results and ED course. Per hospital procedure, I will write temporary bridge inpatient orders on the patient. Specific orders requested by the admitting physician: Alcohol withdrawal protocol Medical Decision Narrative: prior cardiac cath: ANGIOGRAPHIC RESULTS: 1. The left main artery normal 2. The left anterior descending artery normal 3. The circumflex artery normal 4. The right coronary artery dominant normal 5. The TSAI ventriculogram reveals normal 65% 6. The left ventricular end-diastolic pressure normal 10 mmHg IMPRESSION: 1. Normal coronary arteries 2. Normal ejection fraction 3. Normal left ventricular end-diastolic pressure PLAN: 1. Patient appears to be very anxious. Perhaps anxiolysis may benefit her angina 2. Recommend tobacco cessation 3. I still recommend daily aspirin 4. It is possible patient has endothelial dysfunction which could be treated medically with possible Ranexa. The heart rate and blood pressure are too low for typical antianginal medications 5. Because of her tobacco history and recommend CAT scan of the chest and chest x-ray. 6. Recommend pulmonary function tests given her history of tobacco usage Dictated By: Jt Gramajo MD Signed By: <Electronically signed by Jt Gramajo MD in OV> 12/24/17 1511 General Adult HPI - General Chief complaint: Chest Pain Stated complaint: cp Time Seen by Provider: 06/12/19 07:02 Mode of Arrival: EMS Limitations: No Limitations Description of Symptoms (Recalled from ER Triage Doc. by RN): PATIENT PRESENTS TO [place] 7 VIA EMS FROM HOME C/O CHEST PAIN OVER THE LAST 2 DAYS. REPORTS PAIN IS IN THE CENTER OF HER CHEST AND RADIATES DOWN LEFT ARM. EMS REPORTS ADMINISTERING 324MG OF ASA AND NITRO X1 EN ROUTE WITHOUT ANY CHANGE. PATIENT RATES PAIN 9/10. - History of Present Illness HPI narrative: The patient arrives by ambulance, brought in for chest pain, however, when I into the room her first complaint to me is that she is extremely shaky and needs something for her nerves. She is a known alcoholic and has been admitted a couple of times in the past 2 month or so for alcohol withdrawal and admits that she is likely in alcohol withdrawal again. She says that her last drink was yesterday at 4 PM, tequila. Denies drug use. She says for 2 days she has been having chest pain. Initially it was intermittent but she says it is been constant all night last night and she also feels like her heart is racing. She says the pain goes into her left arm. Patient is a smoker. No known history of coronary artery disease, in fact she had a negative heart cath 2 years ago. - Related Data Home Medications Medication Instructions Recorded Confirmed estradiol 1 mg tablet 1 mg PO DAILY 12/24/17 06/12/19 Darifenacin Hydrobromide 7.5 mg PO HS 04/10/19 06/12/19 [Darifenacin ER] Pregabalin [Lyrica 300mg Cap] 300 mg PO BID 04/10/19 06/12/19 clonazePAM [Clonazepam] 1 mg PO TIDP PRN 04/10/19 06/12/19 risperiDONE [Risperdal] 1 mg PO DAILY 04/10/19 06/12/19 Albuterol Sulfate [Albuterol HFA 1 - 2 puffs IH Q4-6H PRN 05/10/19 06/12/19 Inhaler] Fluoxetine HCl 20 mg PO DAILY 05/11/19 06/12/19 Allergies Allergy/AdvReac Type Severity Reaction Status Date / Time No Known Allergies Allergy Unverified 02/20/19 09:13 [facility] History - Hepatitis A Screen Drug use history?: No High risk sexual behaviors?: No History of sexually transmitted infection?: No Currently employed?: No Childcare worker?: No Do you have indoor plumbing?: Yes Do you have electricity?: Yes Attestation statement:: This patient has been screened for Hepatitis A risk factors. I have reviewed the patient's past medical history: Yes Medical History: Reports:: Chronic Obstructive Pulmonary Disease (COPD), De pression, Gastroesophageal Reflux Disease(GERD) Denies:: Cancer, Diabetes Mellitus Type 1, Diabetes Mellitus Type 2, Internal Pacemaker, MRSA, Seizures Other Medical History: Reports: Anemia, Fibromyalgia, Hormone Therapy (ESTROGEN) Comment: Alcohol abuse Other Surgeries: Yes: Appendectomy, Cardiac Catheterization, Hysterectomy-Total, Tubal Ligation, Other. No: Pacemaker Amputation: No Fractures: No Comment: polyps removed from vocal cords - Social History Smoking Status: Current every day smoker Tobacco Type: cigarettes # Packs/Day (cigarettes): 1 Alcohol Intake: current Alcohol Intake Frequency:: 3 or more drinks per day Substance Use Type: denies use Occupational Status: unemployed Housing: house Household Members: family - Psychiatric History Pschychiatric History:: Reports:: Depression Family Hx:: Coronary Artery Disease, Heart Attack Comment: Paternal Grandmother- of [place] at 62 ROS Obtained: Yes All systems reviewed & no additional complaints - Constitutional Constitutional: Denies fever(s) - Cardiovascular Cardiovascular: Reports chest pain, Reports rapid heart rate - Respiratory Respiratory: Yes dyspnea - Gastrointestinal Gastrointestingal: Reports: nausea. Denies: abdominal pain, vomiting Physical Exam - General General appearance: alert, anxious Comment: Tremulous - Head Head exam: atraumatic, normocephalic - Eye Eye exam: Present: normal appearance, EOMI - ENT ENT exam: Present: mucous membranes moist - Neck Neck exam: Present: normal inspection, trachea midline - Chest Chest inspection: Present: normal inspection, symmetric chest wall rise - Respiratory Respiratory exam: Present: normal lung sounds bilaterally. Absent: respiratory distress - Cardiovascular Cardiovascular exam: Present: regular rate, normal rhythm, normal heart sounds - Abdominal Exam Abdominal exam: Present: soft, normal bowel sounds. Absent: distention, tenderness - Extremities Exam Extremities exam: Present: normal inspection, full ROM - Neurological Exam Neurological exam: Present: alert, oriented X3 - Psychiatric Psychiatric exam: Present: anxious - Skin Skin exam: Present: warm, dry
[2019-06-12 07:13] LABS: Basophils # 0.1 K/mm3 (0-0.2); Basophils % 0.5 % (0.1-2.0); Eosinophils % 0.3 % (0.1-12.0); Hematocrit 50.9 % (37.0-47.0); Hemoglobin 16.5 g/dL (12.2-16.2); Lymphocytes # 1.2 K/mm3 (0.7-4.5); Mean Corpuscular HGB Conc 32.4 g/dL (31.8-35.4); Mean Corpuscular Volume 97.6 fl (81-99); Mean Platelet Volume 7.4 fl (7.4-10.4); Monocytes # 0.5 K/mm3 (0.1-1.0); Monocytes % 4.5 % (1.7-9.3); Neutrophils # 10.2 K/mm3 (1.8-7.8); Neutrophils % 84.7 % (37.0-80.0); Platelet Count 428 K/mm3 (142-424); Red Blood Count 5.22 M/mm3 (4.20-5.40); Red Cell Distribution Width 14.4 % (11.5-17.5); White Blood Count 12.1 K/mm3 (4.8-10.8)
[2019-06-12 07:24] LABS: Anion Gap 15.4 mEq/L (5-15); Blood Urea Nitrogen 5 mg/dL (7-18); Calcium 9.6 mg/dL (8.5-10.1); Carbon Dioxide 27 mmol/L (21.0-32.0); Chloride 99 mmol/L (98-107); Ethyl Alcohol 0 mg/dL (0-99); Glucose 126 mg/dL (74-106); Sodium 138 mmol/L (136-145)
[2019-06-12 07:36] LABS: INR 0.97 (0.9-1.1); Prothrombin Time 10.1 seconds (9.4-11.8)
[2019-06-12 07:39] LABS: Albumin Level 3.4 gm/dL (3.4-5.0); Bilirubin,Direct 0.2 mg/dL (0.0-0.2); Bilirubin,Indirect 0.4 mg/dL (0.0-0.9); Bilirubin,Total 0.6 mg/dL (0.2-1.0); Total Protein,Serum 7.2 gm/dL (6.4-8.2)
--- NOTE | 2019-06-12 09:35 | Pharmacy Consult Notes ---
[facility] Pharmacy VTE Monitoring - Patient Demographics Admission date: 06/12/19 Report Date: 06/12/19 Time: 09:32 Allergies/Adverse Reactions: Patient Allergies No Known Allergies Allergy (Unverified 02/20/19 09:13) Height: 1.65 m Weight: 58.967 kg Patient Problems: Current Active Problems Chest pain (Acute) Alcohol withdrawal syndrome (Acute) - VTE Risk Labs: VTE Related Lab Results Hgb 16.5 g/dL (12.2-16.2) H 06/12/19 07:00 Hct 50.9 % (37.0-47.0) H 06/12/19 07:00 Plt Count 428 K/mm3 (142-424) H 06/12/19 07:00 PT 10.1 seconds (9.4-11.8) 06/12/19 07:00 INR 0.97 (0.9-1.1) 06/12/19 07:00 APTT 25.0 seconds (23.6-34.0) 06/12/19 07:00 BUN 5 mg/dL (7-18) L 06/12/19 07:00 Creatinine 0.83 mg/dL (0.55-1.02) 06/12/19 07:00 Estimated Creat Clear 67 mL/min (50-200) 06/12/19 07:00 Clinical Trial Participant: No - Prophylaxis VTE Prophylaxis Ordered?: Yes Types of VTE Prophylaxis: TEDS Knee High
--- NOTE | 2019-06-12 19:26 | History & Physical Report ---
*Admission Date: 06/12/19 *Chief complaint: Chest pain/vomiting/alcohol withdrawal *History of present illness: The patient arrives by ambulance, brought in for chest pain, however, when I into the room her first complaint to me is that she is extremely shaky and needs something for her nerves. She is a known alcoholic and has been admitted a couple of times in the past 2 month or so for alcohol withdrawal and admits that she is likely in alcohol withdrawal again. She says that her last drink was yesterday at 4 PM, tequila. Denies drug use. She says for 2 days she has been having chest pain. Initially it was intermittent but she says it is been constant all night last night and she also feels like her heart is racing. She says the pain goes into her left arm. Patient is a smoker. No known history of coronary artery disease, in fact she had a negative heart cath 2 years ago. Above Per emergency room doctor Patient tells me she is involved with the "[facility]" program and had been on what sounds like Antabuse but ran out of her prescription. She then began drinking again. She is scheduled to follow-up with Candie Duong in psychiatry. She normally sees Dr. Magallanes in the office. [facility] History I have reviewed the patient's past medical history: Yes Medical History: Reports:: Chronic Obstructive Pulmonary Disease (COPD), Depression, Gastroesophageal Reflux Disease(GERD) Denies:: Cancer, Diabetes Mellitus Type 1, Diabetes Mellitus Type 2, Internal Pacemaker, MRSA, Seizures *Have you ever received a pneumonia vaccine?: No *Have you received a flu vaccine this season?: Yes Other Medical History: Reports: Anemia, Fibromyalgia, Hormone Therapy (ESTROGEN) Other Surgeries: Yes: Appendectomy, Cardiac Catheterization, Hysterectomy-Total, Tubal Ligation, Other. No: Pacemaker Amputation: No Fractures: No - *Social History Educational Level: Completed High School Smoking Status: Current every day smoker Tobacco Type: cigarettes # Packs/Day (cigarettes): 20 Alcohol Intake: current Alcohol Intake Frequency:: 3 or more drinks per day Substance Use Type: former substance user *Occupational Status:: disabled Housing: apartment Household Members: none *Travel in the last 8 weeks: None - Psychiatric History Pschychiatric History:: Reports:: Depression Family Hx:: Coronary Artery Disease, Heart Attack Review of Systems - Review of Systems Review of systems:: pertinent systems reviewed and negative unless documented below Other than noted in HPI complete 10 point review of systems negative Meds Home Medications Medication Instructions Recorded Confirmed Type estradiol 1 mg tablet 1 mg PO DAILY 12/24/17 06/12/19 History Darifenacin Hydrobromide 7.5 mg PO HS 04/10/19 06/12/19 History [Darifenacin ER] Pregabalin [Lyrica 300mg Cap] 300 mg PO BID 04/10/19 06/12/19 History clonazePAM [Clonazepam] 1 mg PO TIDP PRN 04/10/19 06/12/19 History risperiDONE [Risperdal] 1 mg PO DAILY 04/10/19 06/12/19 History Albuterol Sulfate [Albuterol HFA 1 - 2 puffs IH Q4-6H PRN 05/10/19 06/12/19 History Inhaler] Fluoxetine HCl 20 mg PO DAILY 05/11/19 06/12/19 History Allergies Allergy/AdvReac Type Severity Reaction Status Date / Time No Known Allergies Allergy Unverified 02/20/19 09:13 Exam Vital signs and Labs for Last 24 Hours: Temp Pulse Resp BP Pulse Ox 97.9 F 81 18 104/64 L 94 L 06/12/19 16:00 06/12/19 16:00 06/12/19 16:00 06/12/19 16:00 06/12/19 16:00 Laboratory Results - last 24 hr 06/12/19 07:00: WBC 12.1 H, RBC 5.22, Hgb 16.5 H, Hct 50.9 H, MCV 97.6, MCH 31.6 H, MCHC 32.4, RDW 14.4, Plt Count 428 H, MPV 7.4, Neut % (Auto) 84.7 H, Lymph % (Auto) 10.0, [place] % (Auto) 4.5, Eos % (Auto) 0.3, Baso % (Auto) 0.5, Neut # (Auto) 10.2 H, Lymph # (Auto) 1.2, [place] # (Auto) 0.5, Eos # (Auto) 0.0, Baso # (Auto) 0.1 06/12/19 07:00: Sodium 138, Potassium 3.4 L, Chloride 99, Carbon Dioxide 27, Anion Gap 15.4 H, BUN 5 L, Creatinine 0.83, Estimated Creat Clear 67, Estimated GFR 70, Est GFR ( Amer) 85, Glucose 126 H, Calcium 9.6, Troponin I < 0.02, Plasma/Serum Alcohol 0 06/12/19 07:00: PT 10.1, INR 0.97, APTT 25.0 06/12/19 07:00: Magnesium 1.4 06/12/19 07:00: Total Bilirubin 0.6, Direct Bilirubin 0.2, Indirect Bilirubin 0.4, AST 18, ALT 21, Alkaline Phosphatase 110, Total Protein 7.2 D, Albumin 3.4 06/12/19 07:00: Lipase 146 06/12/19 09:57: Troponin I < 0.02 06/12/19 09:57: Phosphorus 2.1 L 06/12/19 13:15: Troponin I < 0.02 I & O for Last 24 hours: Intake & Output 06/10/19 06/11/19 06/12/19 06/13/19 11:59 11:59 11:59 11:59 Intake Total 720 / 720 Balance 720 / 720 Weight 128 lb 8 oz Narrative: Patient much more alert than on admission apparently. She reports chest pain is gone away. Heart rate regular, lungs clear, abdomen soft, extremities warm and well- perfused, able to move all extremities well. No edema or clubbing. Neurologically intact. ENT exam clear. No JVD. Assessment and Plan (1) Alcohol withdrawal syndrome Current visit: Yes Status: Acute Qualifiers: Complication of substance-induced condition: uncomplicated Qualified Code(s): F10.230 - Alcohol dependence with withdrawal, uncomplicated Category: Medical Code(s): F10.239 - Alcohol dependence with withdrawal, unspecified (2) Chest pain Current visit: Yes Status: Acute Qualifiers: Chest pain type: precordial pain Qualified Code(s): R07.2 - Precordial pain Category: Medical Code(s): R07.9 - Chest pain, unspecified (3) Alcohol intoxication Current visit: No Status: Acute Category: Medical Code(s): F10.929 - Al cohol use, unspecified with intoxication, unspecified - Assessment and plan all Dx Assessment and Plan for all problems:: [place] has been ruled out. Anticipate hydrating overnight, check labs in the morning. Anticipate short stay discharge. Anticipate try to get patient hooked back up with her alcohol abuse program.
[2019-06-13 05:36] LABS: Amphetamine/Metha Screen,Urine Negative ng/mL (<1000); Barbiturates Screen,Urine Positive ng/mL (<200); Benzodiazepines Screen,Urine Negative ng/mL (<200); Cannabinoid Screen,Urine Negative ng/mL (<50); Cocaine Screen,Urine Negative ng/mL (<300); Methadone Screen,Urine Negative ng/mL (<300); Opiate Screen,Urine Negative ng/mL (<300); Phencyclidine Screen,Urine Negative ng/mL (<25)
[2019-06-13 05:38] LABS: Basophils % 0.6 % (0.1-2.0); Eosinophils # 0.2 K/mm3 (0.0-0.4); Eosinophils % 2.7 % (0.1-12.0); Hematocrit 42.3 % (37.0-47.0); Lymphocytes # 2.5 K/mm3 (0.7-4.5); Lymphocytes % 35.5 % (10-50); Mean Corpuscular Volume 96.8 fl (81-99); Mean Platelet Volume 7.5 fl (7.4-10.4); Monocytes # 0.4 K/mm3 (0.1-1.0); Monocytes % 5.6 % (1.7-9.3); Neutrophils # 3.9 K/mm3 (1.8-7.8); Neutrophils % 55.6 % (37.0-80.0); Platelet Count 300 K/mm3 (142-424); Red Blood Count 4.37 M/mm3 (4.20-5.40); Red Cell Distribution Width 14.4 % (11.5-17.5)
[2019-06-13 05:44] LABS: Anion Gap 13.3 mEq/L (5-15)
[2019-06-13 05:50] LABS: Calcium 8.5 mg/dL (8.5-10.1)
[2019-06-13 05:51] LABS: Hemoglobin 13.5 g/dL (12.2-16.2)
--- NOTE | 2019-06-13 08:25 | Discharge Summary ---
General - General Admission date:: 06/12/19 Discharge date: 06/13/19 HPI HPI: The patient arrives by ambulance, brought in for chest pain, however, when I into the room her first complaint to me is that she is extremely shaky and needs something for her nerves. She is a known alcoholic and has been admitted a couple of times in the past 2 month or so for alcohol withdrawal and admits that she is likely in alcohol withdrawal again. She says that her last drink was yesterday at 4 PM, tequila. Denies drug use. She says for 2 days she has been having chest pain. Initially it was intermittent but she says it is been constant all night last night and she also feels like her heart is racing. She says the pain goes into her left arm. Patient is a smoker. No known history of coronary artery disease, in fact she had a negative heart cath 2 years ago. Above Per emergency room doctor Patient tells me she is involved with the "[facility]" program and had been on what sounds like Antabuse but ran out of her prescription. She then began drinking again. She is scheduled to follow-up with Candie Duong in psychiatry. She normally sees Dr. Magallanes in the office. Hospital Course Hospital Course: Patient was admitted to hospital as noted on ER notes for alcohol withdrawal, she did well with IV fluids, rally pack and resumption of her regular medications. She notes that she had run out of her Antabuse from her rehab clinic but plans to go back to the rehabilitation clinic this week. This morning she was doing well. Exam had normalized. I will refill her clonazepam and Lyrica and she will follow-up with her regular physician on Saturday. Objective Vital signs: Temp Pulse Resp BP Pulse Ox 98.3 F 75 16 108/71 L 97 06/13/19 04:52 06/13/19 04:52 06/13/19 04:52 06/13/19 04:52 06/13/19 04:52 no acute distress, thin - *Routine HEENT Exam Head: Present: normocephalic, atraumatic Eye: Present: EOMI, PERRL. Absent: conjunctival icterus, scleral injection - *Routine Neck Exam Present: supple, full ROM, JVD - *Routine Respiratory Exam Present: accessory muscle use, CTA bilaterally - *Routine Cardiovascular Exam Present: RRR, Normal S1, Normal S2 - *Routine Abdominal Exam Present: soft, normoactive bowel sounds. Absent: tenderness, distended - *Routine Extremities Exam Present: full ROM. Absent: cyanosis, clubbing, edema - *Routine Skin Exam Present: intact. Absent: cyanosis - *Routine Neurological Exam Present: alert, oriented X3, CN II-XII intact Results Labs on day of discharge: Labs from last 24 hours 06/13/19 06/13/19 06/13/19 05:10 05:00 05:00 WBC 7.0 D RBC 4.37 Hgb 13.5 D Hct 42.3 MCV 96.8 MCH 30.9 MCHC 32.0 RDW 14.4 Plt Count 300 D MPV 7.5 Neut % (Auto) 55.6 Lymph % (Auto) 35.5 [place] % (Auto) 5.6 Eos % (Auto) 2.7 Baso % (Auto) 0.6 Neut # (Auto) 3.9 Lymph # (Auto) 2.5 [place] # (Auto) 0.4 Eos # (Auto) 0.2 Baso # (Auto) 0.0 Sodium 145 Potassium 3.3 L Chloride 107 Carbon Dioxide 28 Anion Gap 13.3 BUN 8 D Creatinine 0.78 Estimated Creat Clear 71 Estimated GFR 75 Est GFR ( Amer) 91 Glucose 88 D Calcium 8.5 D Phosphorus Troponin I Urine Opiates Screen Negative Urine Methadone Screen Negative Ur Barbituates Screen Positive H Ur Phencyclidine Scrn Negative Ur Amphetamines Screen Negative U Benzodiazepines Scrn Negative Urine Cocaine Screen Negative U Marijuana (THC) Screen Negative 06/12/19 06/12/19 06/12/19 13:15 09:57 09:57 WBC RBC Hgb Hct MCV MCH MCHC RDW Plt Count MPV Neut % (Auto) Lymph % (Auto) [place] % (Auto) Eos % (Auto) Baso % (Auto) Neut # (Auto) Lymph # (Auto) [place] # (Auto) Eos # (Auto) Baso # (Auto) Sodium Potassium Chloride Carbon Dioxide Anion Gap BUN Creatinine Estimated Creat Clear Estimated GFR Est GFR ( Amer) Glucose Calcium Phosphorus 2.1 L Troponin I < 0.02 < 0.02 Urine Opiates Screen Urine Methadone Screen Ur Barbituates Screen Ur Phencyclidine Scrn Ur Amphetamines Screen U Benzodiazepines Scrn Urine Cocaine Screen U Marijuana (THC) Screen DS: Diagnosis - Discharge Diagnosis (1) Alcohol withdrawal syndrome Status: Resolved (2) Chest pain Status: Resolved (3) Alcohol intoxication Status: Resolved Discharge Plan - Patient Discharge Instructions ACTIVITY: Continue current activity DIET: continue same diet - Follow up Plan Follow up with: Tres Magallanes [Primary Care Provider] - 06/15/19 Disposition: Home, Self-Correction Medications: Home Medications Medication Instructions Recorded Confirmed Type estradiol 1 mg tablet 1 mg PO DAILY 12/24/17 06/12/19 History Darifenacin Hydrobromide 7.5 mg PO HS 04/10/19 06/12/19 History [Darifenacin ER] risperiDONE [Risperdal] 1 mg PO DAILY 04/10/19 06/12/19 History Albuterol Sulfate [Albuterol HFA 1 - 2 puffs IH Q4-6H PRN 05/10/19 06/12/19 History Inhaler] Fluoxetine HCl 20 mg PO DAILY 05/11/19 06/12/19 History Pregabalin [Lyrica 300mg Cap] 300 mg PO BID #60 cap 06/13/19 Rx clonazePAM [Clonazepam] 1 mg PO TIDP PRN #30 tab 06/13/19 Rx Prescriptions/Medication Reconciliation: Continued estradiol 1 mg tablet 1 mg PO DAILY Albuterol Sulfate [Albuterol HFA Inhaler] 1 - 2 puffs IH Q4-6H PRN PRN Reason: Shortness Of Breath Or Wheezing Fluoxetine HCl 20 mg PO DAILY Pregabalin [Lyrica 300mg Cap] 300 mg PO BID #60 cap Darifenacin Hydrobromide [Darifenacin ER] 7.5 mg PO HS risperiDONE [Risperdal] 1 mg PO DAILY clonazePAM [Clonazepam] 1 mg PO TIDP PRN #30 tab PRN Reason: Anxiety - Problem Reconciliation Problems Reviewed?: Yes
--- NOTE | 2019-06-13 11:51 | Electrocardiograph Report ---
APPROVED REPORT Exam: Resting ECG HR:82 bpm ECG Measurements Heart Rate 82 AXES MT 130 P 86 QRSd 72 QRS 87 QT 392 T77 QTc 457 <Conclusion> Normal sinus rhythm Right atrial enlargement ST abnormality, probable electrolyte effect Abnormal ECG Electronically signed by : Ángel Smith, 06/13/2019 11:50:49
== END 2019-06-13 12:05 | disposition home or self-care (01) ==
LOC: ER 06:52 → 2ND 06:52
PROVIDERS: ADMIT Internal Medicine Adolescent Medicine; ATTEND Internal Medicine Adolescent Medicine
DX: F10.230 Alcohol dependence with withdrawal, uncomplicated; F41.9 Anxiety disorder, unspecified; F10.229 Alcohol dependence with intoxication, unspecified; Z79.899 Other long term (current) drug therapy; Z72.0 Tobacco use; J44.9 Chronic obstructive pulmonary disease, unspecified; K21.9 Gastro-esophageal reflux disease without esophagitis; Z79.890 Hormone replacement therapy; D64.9 Anemia, unspecified; R07.2 Precordial pain; F32.9 Major depressive disorder, single episode, unspecified; F13.90 Sedative, hypnotic, or anxiolytic use, unspecified, uncomplicated
CPT/HCPCS: 36415; 71010; 71045; 80048; 80076; 80305; 83690; 83735; 84100; 84484; 85025; 85610; 85730; 93005; 96365; 96375; 99285; G0378; J2405

== ENCOUNTER 2019-06-16 10:07 | Observation (INO) ==
[2019-06-16 10:31] LABS: Appearance,Urine CLEAR (Clear); Bilirubin,Urine Negative (Negative); Blood, Urine Negative (Negative); Color,Urine YELLOW (Yellow); Glucose,Urine (UA) Negative (Negative); Ketones,Urine Negative (Negative); Leukocyte Esterase,Urine Negative (Negative); Microscopic, Urine URINE MICROSCOPIC (MICROSCOPIC); Protein,Urine Negative (Negative); Specific Gravity, Urine 1.015 (1.005-1.030); Urobilinogen,Urine 0.2 EU/dl (0.2)
[2019-06-16 10:36] LABS: Basophils # 0.1 K/mm3 (0-0.2); Basophils % 0.7 % (0.1-2.0); Eosinophils # 0.3 K/mm3 (0.0-0.4); Eosinophils % 2.2 % (0.1-12.0); Hematocrit 43.6 % (37.0-47.0); Hemoglobin 14.1 g/dL (12.2-16.2); Lymphocytes # 3.3 K/mm3 (0.7-4.5); Lymphocytes % 24.2 % (10-50); Mean Corpuscular HGB Conc 32.5 g/dL (31.8-35.4); Mean Corpuscular Volume 100.1 fl (81-99); Monocytes # 0.7 K/mm3 (0.1-1.0); Monocytes % 4.9 % (1.7-9.3); Neutrophils # 9.2 K/mm3 (1.8-7.8); Platelet Count 301 K/mm3 (142-424); Red Blood Count 4.35 M/mm3 (4.20-5.40); Red Cell Distribution Width 14.3 % (11.5-17.5); White Blood Count 13.5 K/mm3 (4.8-10.8)
[2019-06-16 10:43] LABS: Amphetamine/Metha Screen,Urine Negative ng/mL (<1000); Barbiturates Screen,Urine Negative ng/mL (<200); Benzodiazepines Screen,Urine Negative ng/mL (<200); Cannabinoid Screen,Urine Negative ng/mL (<50); Cocaine Screen,Urine Negative ng/mL (<300); Methadone Screen,Urine Negative ng/mL (<300); Opiate Screen,Urine Negative ng/mL (<300); Phencyclidine Screen,Urine Negative ng/mL (<25)
[2019-06-16 10:54] LABS: Alanine Aminotransferase 36 U/L (9-52); Albumin Level 2.7 g/dL (3.4-5.0); Albumin/Globulin Ratio 0.7 (1.1-1.8); Alkaline Phosphatase 87 U/L (46-116); Anion Gap 13.9 mEq/L (5-15); Aspartate Amino Transferase 104 U/L (15-37); Bilirubin,Total 0.5 mg/dL (0.2-1.0); Blood Urea Nitrogen 7 mg/dL (7-18); Calcium 8.4 mg/dL (8.5-10.1); Carbon Dioxide 26 mmol/L (21.0-32.0); Chloride 106 mmol/L (98-107); Glucose 89 mg/dL (74-106); Sodium 142 mmol/L (137-145); Total Protein,Serum 6.7 g/dL (6.4-8.2)
[2019-06-16 10:56] LABS: Ethyl Alcohol 0 mg/dL (0-99)
[2019-06-16 11:09] LABS: Bacteria,Urine Trace /lpf; WBC,Urine Occasional #/hpf (0-3)
--- NOTE | 2019-06-16 11:50 | Emergency Department Note ---
ED Disposition Clinical Impression: Impaired ambulation Disposition: Admitted as Observation Condition on Discharge: [facility] - Critical Care Critical Care Time: No Attestation: On 06/16/19, the high probability of a clinically significant, sudden or life threatening deterioration of the following system(s) required my full and direct attention, intervention and personal management. The time I documented below is in addition to time spent performing reported procedures but includes the following listed in this critical care notation. Medical Decision Making - Ed Inquiry Pt receiving controlled substance: No Ed was queried for this patient: No Vital Signs: 06/16/19 10:07 06/16/19 12:00 06/16/19 14:00 Temperature 98.3 F Temperature Source Oral Pulse Rate Pulse Rate [Right] 87 89 87 Respiratory Rate 20 18 17 Blood Pressure Blood Pressure [Right Arm] 112/64 119/56 L 120/47 L Blood Pressure Mean [Right Arm] 80 77 71 02 Sat by Pulse Oximetry 96 98 06/16/19 16:00 06/16/19 18:07 Temperature 98.1 F Temperature Source Oral Pulse Rate 75 Pulse Rate [Right] 78 Respiratory Rate 18 16 Blood Pressure 94/64 L Blood Pressure [Right Arm] 117/69 Blood Pressure Mean [Right Arm] 85 02 Sat by Pulse Oximetry 99 - Lab Data Lab Results 06/16/19 10:15: Urine Color Yellow, Urine Appearance Clear, Urine pH 7.0, Ur Specific [place] 1.015, Urine Protein Negative, Urine Glucose (UA) Negative, Urine Ketones Negative, Urine Blood Negative, Urine Nitrate Negative, Urine Bilirubin Negative, Urine Urobilinogen 0.2, Ur Leukocyte Esterase Negative, Urine RBC 3-5, Urine WBC Occasional, Ur Squamous Epith Cells 3-5, Urine Bacteria Trace 06/16/19 10:15: WBC 13.5 H, RBC 4.35, Hgb 14.1, Hct 43.6, MCV 100.1 H, MCH 32.5 H, MCHC 32.5, RDW 14.3, Plt Count 301, MPV 8.0, Neut % (Auto) 68.0, Lymph % (Auto) 24.2, [place] % (Auto) 4.9, Eos % (Auto) 2.2, Baso % (Auto) 0.7, Neut # (Auto) 9.2 H, Lymph # (Auto) 3.3, [place] # (Auto) 0.7, Eos # (Auto) 0.3, Baso # (Auto) 0.1 06/16/19 10:15: Sodium 142, Potassium 3.9, Chloride 106, Carbon Dioxide 26, Anion Gap 13.9, BUN 7, Creatinine 0.75, Estimated Creat Clear 74, Estimated GFR 79, Est GFR ( Amer) 95, Glucose 89, Calcium 8.4 L, Total Bilirubin 0.5, AST 104 H, ALT 36, Alkaline Phosphatase 87, Troponin I < 0.02, Total Protein 6.7, Albumin 2.7 L, Globulin 4.0 H, Albumin/Globulin Ratio 0.7 L, Plasma/Serum Alcohol 0 06/16/19 10:15: Urine Opiates Screen Negative, Urine Methadone Screen Negative, Ur Barbituates Screen Negative, Ur Phencyclidine Scrn Negative, Ur Amphetamines Screen Negative, U Benzodiazepines Scrn Negative, Urine Cocaine Screen Negative, U Marijuana (THC) Screen Negative 06/16/19 10:15: Influenza Type A Ag Negative, Influenza Type B Ag Negative 06/16/19 10:15: Lactate 1.3 06/16/19 13:15: Troponin I < 0.02 06/16/19 13:15: Magnesium 2.0 06/16/19 16:33: Troponin I < 0.02 06/16/19 16:33: Total Creatine Kinase 1795 H*, TSH 0.55 D, Free T4 1.02 Result diagrams: 06/16/19 10:15 06/16/19 10:15 Orders (Tests/Meds): ED MEDICATIONS Generic Name Dose Route Start Last Admin Trade Name Freq PRN Reason Stop Dose Admin Acetaminophen 650 mg 06/16/19 18:03 06/16/19 18:48 Acetaminophen 325mg Tab PO 06/16/19 18:04 650 mg ONCE ONE Administration Acetaminophen 650 mg 06/16/19 19:00 Acetaminophen 325mg Tab PO 07/16/19 18:59 Q6HP PRN MILD TO MODERATE PAIN/FEVER Albuterol Sulfate 1 - 2 puffs 06/16/19 18:03 Proventil-Hfa 90mcg/Puff Inhaler IH 07/16/19 18:02 Q4-6H PRN Shortness Of Breath Or Wheezing Clonazepam 1 mg 06/16/19 18:03 06/16/19 21:07 Klonopin 1mg Tablet PO 07/16/19 18:02 1 mg TIDP PRN Administration Anxiety Fluoxetine HCl 20 mg 06/17/19 09:00 Prozac 20mg Capsule PO 07/17/19 08:59 DAILY PATRICA Miscellaneous 1 unit 06/16/19 18:03 Aerochamber/Optihaler MC 06/16/19 18:04 ONCE ONE Non-Formulary Medication 7.5 mg 06/16/19 21:00 06/16/19 21:13 Darifenacin Hydrobromide [Darifenacin Er] PO 07/16/19 20:59 Not Given HS PATRICA Non-Formulary Medication 300 mg 06/16/19 21:00 06/16/19 21:08 Pregabalin [Lyrica 300mg Cap] PO 07/16/19 20:59 300 mg BID PATRICA Administration Risperidone 1 mg 06/17/19 09:00 Risperdal 1mg Tablet PO 07/17/19 08:59 DAILY PATRICA Discontinued Medications Generic Name Dose Route Start Last Admin Trade Name Freq PRN Reason Stop Dose Admin Acetaminophen 650 mg 06/16/19 17:12 06/16/19 18:03 Acetaminophen 325mg Tab PO 06/16/19 17:13 Not Given ONCE ONE Sodium Chloride 1,000 mls @ 999 mls/hr 06/16/19 10:30 06/16/19 10:49 Sod Chlor 0.9% 1000ml Bag IV 06/16/19 11:30 999 mls/hr .Q1H1M PATRICA Administration Ketorolac Tromethamine 30 mg 06/16/19 13:21 06/16/19 13:27 Toradol 30mg/Ml Vial IV 06/16/19 13:22 30 mg ONCE ONE Administration ORDERS Category Date Time Status Blood Culture Stat Micro 06/16/19 10:25 Received Medical Decision Narrative: In summary Josie Hayden is a 59-year-old female who presents emergency department for evaluation of weakness. Patient's vital signs are within normal limits. On exam patient has bilateral 4 out of 5 strenth in her lower extremities. 5 out of 5 to her upper extremities. Patient's reflexes are intact. Patient denies any significant trauma. Patient does endorse pain to her bilateral legs, occasional back pain, and urinary incontinence. Torrential diagnosis includes but is not limited to Miguel tract infection, electrolyte imbalance, cauda equina. This ordered broad work-up including CT head, CT C- spine, chest x-ray, pelvic x-ray, CBC, CMP, urinalysis, influenza swab. Patient's labs returned and are all nonactionable. No evidence of UTI, no electrolyte imbalance, or anything else to explain patient's bilateral lower extremity weakness. CTs returned showing: IMPRESSION: Cervical spondylosis as detailed above otherwise negative IMPRESSION: No acute intracranial finding On reevaluation patient continues to significant weakness to her bilateral lower extremities. Attempted to walk patient with assistance, but she was unable to bear weight. RI performed to patient's L-spine to rule out cauda equina, or epidural abscess. RI showing patient have a normal cauda equina, and is a chronic disc disease. Reevaluation patient continues to state that she is unable to ambulate. Given this an MRI of the patient's L spine was ordered. MRI results show: There is normal alignment. The spinal cord ends at the L2 level.. L1-L2: There is a Schmorl's node which is developed along the superior endplate of L2 since 11/12/2014 but was present on the CT scan of 05/10/2019. L2-L3: Unremarkable. L3-L4: There is mild bulging disc along with facet and ligamentum hypertrophy with mild bilateral lateral recess and foraminal narrowing not significantly changed. L4-5: There is concentric bulging disc along with moderate to severe facet and ligamentum hypertrophy with severe bilateral lateral recess and foraminal narrowing with canal stenosis similar to the previous exam. L5-S1: Bulging disc with facet ligamentum hypertrophy with mild bilateral lateral recess and foraminal narrowing. The cauda quinine has an unremarkable appearance. IMPRESSION: 1. Unremarkable appearing cauda equina. No compression upon the cauda equina. There is minimal bulging disc at L1-L2 but no impingement. 2. L3-L4: There is mild bulging disc along with facet and ligamentum hypertrophy with mild bilateral lateral recess and foraminal narrowing not significantly changed. 3. L4-5: There is concentric bulging disc along with moderate to severe facet and ligamentum hypertrophy with severe bilateral lateral recess and foraminal narrowing with canal stenosis similar to the previous exam. 4. L5-S1: Bulging disc with facet ligamentum hypertrophy with mild bilateral lateral recess and foraminal narrowing. On re-evaluation the patient still complains that she is unable to ambulate. Dr. Najera consulted and has agreed to admit the patient for further evaluation. General Adult HPI - General Chief complaint: Weakness Stated complaint: weakness Time Seen by Provider: 06/16/19 10:15 Mode of Arrival: EMS Limitations: No Limitations Description of Symptoms (Recalled from ER Triage Doc. by RN): Pt states for 3 days she has been weak from her waist down. Pt states she is unable to walk because she is so weak. Pt states she is having pain all over. Pt denies fever or NVD. - History of Present Illness HPI narrative: Patient is a 59-year-old male with a past medical history recent discharged after being admitted for alcohol withdrawal, who presents the emergency department for evaluation of weakness. Patient states that for the last 3 days she has had significant weakness to her bilateral lower extremities. Patient states that due to this she has been unable to ambulate. She complains of pain to her bilateral legs. Denies saddle anesthesia, fecal incontinence, states she often wets herself as she cannot make it to the bathroom. Patient denies back pain, fevers, chills, nausea, vomiting, and abdominal pain at this time. - Related Data Home Medications Medication Instructions Recorded Confirmed Darifenacin Hydrobromide 7.5 mg PO HS 04/10/19 06/16/19 [Darifenacin ER] risperiDONE [Risperdal] 1 mg PO DAILY 04/10/19 06/16/19 Albuterol Sulfate [Albuterol HFA 1 - 2 puffs IH Q4-6H PRN 05/10/19 06/16/19 Inhaler] Previous Rx's Medication Instructions Recorded Pregabalin [Lyrica 300mg Cap] 300 mg PO BID #60 cap 06/13/19 clonazePAM [Clonazepam] 1 mg PO TIDP PRN #30 tab 06/13/19 Allergies Allergy/AdvReac Type Severity Reaction Status Date / Time No Known Allergies Allergy Unverified 02/20/19 09:13 [facility] History - Hepatitis A Screen Drug use history?: No High risk sexual behaviors?: No History of sexually transmitted infection?: No Currently employed?: No Childcare worker?: No Do you have indoor plumbing?: Yes Do you have electricity?: Yes Attestation statement:: This patient has been screened for Hepatitis A risk factors. I have reviewed the patient's past medical history: Yes Medical History: Reports:: Chronic Obstructive Pulmonary Disease (COPD), Depression, Gastroesophageal Reflux Disease(GERD) Denies:: Cancer, Diabetes Mellitus Type 1, Diabetes Mellitus Type 2, Internal Pacemaker, MRSA, Seizures Other Medical History: Reports: Anemia, Fibromyalgia, Hormone Therapy (ESTROGEN) Comment: Alcohol abuse Other Surgeries: Yes: Appendectomy, Cardiac Catheterization, Hysterectomy-Total, Tubal Ligation, Other. No: Pacemaker Amputation: No Fractures: No Comment: polyps removed from vocal cords - Social History Smoking Status: Current every day smoker Tobacco Type: cigarettes # Packs/Day (cigarettes): 1 Alcohol Intake: current Alcohol Intake Frequency:: 3 or more drinks per day Substance Use Type: former substance user Occupational Status: retired Housing: apartment Household Members: none - Psychiatric History Pschychiatric History:: Reports:: Depression Family Hx:: Coronary Artery Disease, Heart Attack Comment: Paternal Grandmother- of [place] at 62 ROS Obtained: Yes All systems reviewed & no additional complaints Physical Exam - General General appearance: alert, anxious - Head Head exam: atraumatic, normocephalic - Eye Eye exam: Present: normal appearance - Chest Chest inspection: Present: normal inspection, symmetric chest wall rise - Respiratory Respiratory exam: Present: normal lung sounds bilaterally, respiratory distress - Cardiovascular Cardiovascular exam: Present: regular rate, normal rhythm - Abdominal Exam Abdominal exam: Present: soft. Absent: distention, tenderness - Extremities Exam Extremities exam: Present: normal inspection, tenderness. Absent: joint swelling - Neurological Exam Neurological exam: Present: alert, oriented X3, motor sensory deficit (4/5 st rength bilateraly to lower extremities with effort), reflexes normal. Absent: normal gait - Skin Skin exam: Present: warm, dry
[2019-06-16 18:00] LABS: Free T4 (Free Thyroxine) 1.02 ng/dl (0.76-1.46); Thyroid Stimulating Hormone 0.55 uIU/ml (0.358-3.740)
--- NOTE | 2019-06-16 20:07 | Electrocardiograph Report ---
APPROVED REPORT Exam: Resting ECG HR:80 bpm ECG Measurements Heart Rate 80 AXES ID 142 P 75 QRSd 74 QRS 82 QT 392 T62 QTc 452 <Conclusion> Normal sinus rhythm Normal ECG Electronically signed by : Ángel Smith, 06/16/2019 20:06:30
--- NOTE | 2019-06-17 07:25 | Pharmacy Consult Notes ---
[facility] Pharmacy VTE Monitoring - Patient Demographics Admission date: 06/16/19 Report Date: 06/17/19 Time: 07:25 Allergies/Adverse Reactions: Patient Allergies No Known Allergies Allergy (Unverified 02/20/19 09:13) Height: 1.65 m Weight: 60.328 kg Patient Problems: Current Active Problems Impaired ambulation (Acute) - VTE Risk Labs: VTE Related Lab Results Hgb 14.1 g/dL (12.2-16.2) 06/16/19 10:15 Hct 43.6 % (37.0-47.0) 06/16/19 10:15 Plt Count 301 K/mm3 (142-424) 06/16/19 10:15 BUN 7 mg/dL (7-18) 06/16/19 10:15 Creatinine 0.75 mg/dL (0.55-1.02) 06/16/19 10:15 Estimated Creat Clear 74 mL/min (50-200) 06/16/19 10:15 VTE Score: 7 VTE Risk Level: Moderate Risk - Prophylaxis VTE Prophylaxis Ordered?: Yes Types of VTE Prophylaxis: TEDS Knee High Location of Applied Device: Bilateral Lower Extremeties
--- NOTE | 2019-06-17 08:40 | History & Physical Report ---
*Admission Date: 06/16/19 *Chief complaint: Lower extremity weakness, rhabdomyolysis *History of present illness: 59-year-old white female with long history of recurrent alcoholism and admissions recently for alcohol withdrawal issues, bipolar disease, chronic depression, who we discharged Saturday after short-term treatment for alcohol withdrawal, came back to the emergency department yesterday evening with a chief complaint of being unable to walk. EMS reported she was able to walk with maximum assist to the ambulance gurney, but in the emergency department was unable to bear weight, and in spite of significant evaluation including MRI of LS-spine was found to have no significant lab abnormalities except for CPK level of 1700. She was admitted to hospital for IV fluids and PT/OT evaluation. Of note, alcohol level was 0. [facility] History I have reviewed the patient's past medical history: Yes Medical History: Reports:: Chronic Obstructive Pulmonary Disease (COPD), Depression, Gastroesophageal Reflux Disease(GERD) Denies:: Cancer, Diabetes Mellitus Type 1, Diabetes Mellitus Type 2, Internal Pacemaker, MRSA, Seizures *Have you ever received a pneumonia vaccine?: No *Have you received a flu vaccine this season?: Yes Other Medical History: Reports: Anemia, Fibromyalgia, Hormone Therapy (ESTROGEN) Other Surgeries: Yes: Appendectomy, Cardiac Catheterization, Hysterectomy-Total, Tubal Ligation, Other. No: Pacemaker Amputation: No Fractures: No - *Social History Educational Level: Completed High School Smoking Status: Current every day smoker Tobacco Type: cigarettes # Packs/Day (cigarettes): 1 Alcohol Intake: former Alcohol Intake Frequency:: 0-2 drinks per day Substance Use Type: former substance user *Occupational Status:: disabled Housing: apartment Household Members: family *Travel in the last 8 weeks: None - Psychiatric History Pschychiatric History:: Reports:: Depression Family Hx:: Cancer Review of Systems - Review of Systems Review of systems:: pertinent systems reviewed and negative unless documented below Other than leg weakness and leg aches patient has a completely -10 point review of systems Meds Home Medications Medication Instructions Recorded Confirmed Type Darifenacin Hydrobromide 7.5 mg PO HS 04/10/19 06/16/19 History [Darifenacin ER] risperiDONE [Risperdal] 1 mg PO DAILY 04/10/19 06/16/19 History Albuterol Sulfate [Albuterol HFA 1 - 2 puffs IH Q4-6H PRN 05/10/19 06/16/19 History Inhaler] Pregabalin [Lyrica 300mg Cap] 300 mg PO BID #60 cap 06/13/19 06/16/19 Rx clonazePAM [Clonazepam] 1 mg PO TIDP PRN #30 tab 06/13/19 06/16/19 Rx Fluoxetine HCl 20 mg PO DAILY 06/17/19 06/17/19 History estradioL [Estradiol] 1 mg PO DAILY 06/17/19 06/17/19 History Allergies Allergy/AdvReac Type Severity Reaction Status Date / Time No Known Allergies Allergy Unverified 02/20/19 09:13 Exam Vital signs and Labs for Last 24 Hours: Temp Pulse Resp BP Pulse Ox 98.7 F 74 20 99/56 L 93 L 06/17/19 08:00 06/17/19 08:00 06/17/19 08:00 06/17/19 08:00 06/17/19 08:00 Laboratory Results - last 24 hr 06/16/19 10:15: Urine Color Yellow, Urine Appearance Clear, Urine pH 7.0, Ur Specific [place] 1.015, Urine Protein Negative, Urine Glucose (UA) Negative, Urine Ketones Negative, Urine Blood Negative, Urine Nitrate Negative, Urine Bili treadwell Negative, Urine Urobilinogen 0.2, Ur Leukocyte Esterase Negative, Urine RBC 3-5, Urine WBC Occasional, Ur Squamous Epith Cells 3-5, Urine Bacteria Trace 06/16/19 10:15: WBC 13.5 H, RBC 4.35, Hgb 14.1, Hct 43.6, MCV 100.1 H, MCH 32.5 H, MCHC 32.5, RDW 14.3, Plt Count 301, MPV 8.0, Neut % (Auto) 68.0, Lymph % (Auto) 24.2, [place] % (Auto) 4.9, Eos % (Auto) 2.2, Baso % (Auto) 0.7, Neut # (Auto) 9.2 H, Lymph # (Auto) 3.3, [place] # (Auto) 0.7, Eos # (Auto) 0.3, Baso # (Auto) 0.1 06/16/19 10:15: Sodium 142, Potassium 3.9, Chloride 106, Carbon Dioxide 26, Anion Gap 13.9, BUN 7, Creatinine 0.75, Estimated Creat Clear 74, Estimated GFR 79, Est GFR ( Amer) 95, Glucose 89, Calcium 8.4 L, Total Bilirubin 0.5, AST 104 H, ALT 36, Alkaline Phosphatase 87, Troponin I < 0.02, Total Protein 6.7, Albumin 2.7 L, Globulin 4.0 H, Albumin/Globulin Ratio 0.7 L, Plasma/Serum Alcohol 0 06/16/19 10:15: Urine Opiates Screen Negative, Urine Methadone Screen Negative, Ur Barbituates Screen Negative, Ur Phencyclidine Scrn Negative, Ur Amphetamines Screen Negative, U Benzodiazepines Scrn Negative, Urine Cocaine Screen Negative, U Marijuana (THC) Screen Negative 06/16/19 10:15: Influenza Type A Ag Negative, Influenza Type B Ag Negative 06/16/19 10:15: Lactate 1.3 06/16/19 13:15: Troponin I < 0.02 06/16/19 13:15: Magnesium 2.0 06/16/19 16:33: Troponin I < 0.02 06/16/19 16:33: Total Creatine Kinase 1795 H*, TSH 0.55 D, Free T4 1.02 I & O for Last 24 hours: Intake & Output 06/14/19 06/15/19 06/16/19 06/17/19 11:59 11:59 11:59 11:59 Output Total 200 / 200 Balance -200 / -200 Weight 130 lb 133 lb - *Routine HEENT Exam Head: Present: normocephalic Eye: Present: EOMI, PERRL ENT: Present: mucous membranes moist - *Routine Neck Exam Present: supple. Absent: lymphadenopathy - *Routine Respiratory Exam Present: CTA bilaterally - *Routine Cardiovascular Exam Present: RRR - *Routine Abdominal Exam Present: soft, normoactive bowel sounds. Absent: tenderness - *Routine Extremities Exam Absent: cyanosis, clubbing, edema - *Routine Skin Exam Present: warm. Absent: rash - *Routine Neurological Exam Present: alert, oriented X3, moving all extremities No tremors or fasciculations. Significant weakness in the lower extremities, she is weak in the upper extremities as well but more prominent in the lower extremities. - Detailed Eye Exam Eyelids: Bilateral normal inspection Pupils: Bilateral regular, round, Bilateral reactive Assessment and Plan (1) Rhabdomyolysis Current visit: Yes Status: Acute Category: Medical Code(s): M62.82 - Rhabdomyolysis Repeat CPK, continue fluids. Renal function looks good. PT/OT evaluation for weakness and impaired ambulation. (2) Impaired ambulation Current visit: Yes Status: Acute Category: Medical Code(s): R26.2 - Difficulty in walking, not elsewhere classified (3) Hypomagnesemia Current visit: No Status: Acute Category: Medical Code(s): E83.42 - Hypomagnesemia (4) Alcoholism Current visit: Yes Status: Acute Category: Medical Code(s): F10.20 - Alcohol dependence, uncomplicated
--- NOTE | 2019-06-17 08:48 | Discharge Summary ---
General - General Admission date:: 06/16/19 Discharge date: 06/17/19 HPI HPI: 59-year-old white female with long history of recurrent alcoholism and admissions recently for alcohol withdrawal issues, bipolar disease, chronic depression, who we discharged Saturday after short-term treatment for alcohol withdrawal, came back to the emergency department yesterday evening with a chief complaint of being unable to walk. EMS reported she was able to walk with maximum assist to the ambulance gurney, but in the emergency department was unable to bear weight, and in spite of significant evaluation including MRI of LS-spine was found to have no signific ant lab abnormalities except for CPK level of 1700. She was admitted to hospital for IV fluids and PT/OT evaluation. Of note, alcohol level was 0. Hospital Course Hospital Course: Patient was admitted. Patient was evaluated by physical therapy who recommended placement versus home health. Patient adamantly refuses placement because of financial issues. Patient thinks she can do well with a walker. As a result she will be discharged home with walker. And I encouraged her to see her regular physician sometime this week. Objective Vital signs: Temp Pulse Resp BP Pulse Ox 98.7 F 74 20 99/56 L 93 L 06/17/19 08:00 06/17/19 08:00 06/17/19 08:00 06/17/19 08:00 06/17/19 08:00 no acute distress, thin - *Routine HEENT Exam Head: Present: normocephalic Eye: Present: EOMI, PERRL. Absent: conjunctival icterus - *Routine Neck Exam Present: supple, full ROM. Absent: JVD - *Routine Respiratory Exam Present: CTA bilaterally. Absent: accessory muscle use - *Routine Abdominal Exam Present: soft, normoactive bowel sounds - *Routine Extremities Exam Absent: cyanosis, clubbing, edema - *Routine Neurological Exam Present: alert, oriented X3 Still weak in the lower extremities but improved over admission. Please see PT notes - Detailed Eye Exam Eyelids: Left normal inspection Results Labs on day of discharge: Labs from last 24 hours 06/16/19 06/16/19 06/16/19 16:33 16:33 13:15 WBC RBC Hgb Hct MCV MCH MCHC RDW Plt Count MPV Neut % (Auto) Lymph % (Auto) [place] % (Auto) Eos % (Auto) Baso % (Auto) Neut # (Auto) Lymph # (Auto) [place] # (Auto) Eos # (Auto) Baso # (Auto) Sodium Potassium Chloride Carbon Dioxide Anion Gap BUN Creatinine Estimated Creat Clear Estimated GFR Est GFR ( Amer) Glucose Lactate Calcium Magnesium 2.0 Total Bilirubin AST ALT Alkaline Phosphatase Total Creatine Kinase 1795 H* Troponin I < 0.02 Total Protein Albumin Globulin Albumin/Globulin Ratio TSH 0.55 D Free T4 1.02 Urine Color Urine Appearance Urine pH Ur Specific [place] Urine Protein Urine Glucose (UA) Urine Ketones Urine Blood Urine Nitrate Urine Bilirubin Urine Urobilinogen Ur Leukocyte Esterase Urine RBC Urine WBC Ur Squamous Epith Cells Urine Bacteria Urine Opiates Screen Urine Methadone Screen Ur Barbituates Screen Ur Phencyclidine Scrn Ur Amphetamines Screen U Benzodiazepines Scrn Urine Cocaine Screen U Marijuana (THC) Screen Plasma/Serum Alcohol Influenza Type A Ag Influenza Type B Ag 06/16/19 06/16/19 06/16/19 13:15 10:15 10:15 WBC RBC Hgb Hct MCV MCH MCHC RDW Plt Count MPV Neut % (Auto) Lymph % (Auto) [place] % (Auto) Eos % (Auto) Baso % (Auto) Neut # (Auto) Lymph # (Auto) [place] # (Auto) Eos # (Auto) Baso # (Auto) Sodium Potassium Chloride Carbon Dioxide Anion Gap BUN Creatinine Estimated Creat Clear Estimated GFR Est GFR ( Amer) Glucose Lactate 1.3 Calcium Magnesium Total Bilirubin AST ALT Alkaline Phosphatase Total Creatine Kinase Troponin I < 0.02 Total Protein Albumin Globulin Albumin/Globulin Ratio TSH Free T4 Urine Color Urine Appearance Urine pH Ur Specific [place] Urine Protein Urine Glucose (UA) Urine Ketones Urine Blood Urine Nitrate Urine Bilirubin Urine Urobilinogen Ur Leukocyte Esterase Urine RBC Urine WBC Ur Squamous Epith Cells Urine Bacteria Urine Opiates Screen Urine Methadone Screen Ur Barbituates Screen Ur Phencyclidine Scrn Ur Amphetamines Screen U Benzodiazepines Scrn Urine Cocaine Screen U Marijuana (THC) Screen Plasma/Serum Alcohol Influenza Type A Ag Negative Influenza Type B Ag Negative 06/16/19 06/16/19 06/16/19 10:15 10:15 10:15 WBC 13.5 H RBC 4.35 Hgb 14.1 Hct 43.6 MCV 100.1 H MCH 32.5 H MCHC 32.5 RDW 14.3 Plt Count 301 MPV 8.0 Neut % (Auto) 68.0 Lymph % (Auto) 24.2 [place] % (Auto) 4.9 Eos % (Auto) 2.2 Baso % (Auto) 0.7 Neut # (Auto) 9.2 H Lymph # (Auto) 3.3 [place] # (Auto) 0.7 Eos # (Auto) 0.3 Baso # (Auto) 0.1 Sodium 142 Potassium 3.9 Chloride 106 Carbon Dioxide 26 Anion Gap 13.9 BUN 7 Creatinine 0.75 Estimated Creat Clear 74 Estimated GFR 79 Est GFR ( Amer) 95 Glucose 89 Lactate Calcium 8.4 L Magnesium Total Bilirubin 0.5 AST 104 H ALT 36 Alkaline Phosphatase 87 Total Creatine Kinase Troponin I < 0.02 Total Protein 6.7 Albumin 2.7 L Globulin 4.0 H Albumin/Globulin Ratio 0.7 L TSH Free T4 Urine Color Urine Appearance Urine pH Ur Specific [place] Urine Protein Urine Glucose (UA) Urine Ketones Urine Blood Urine Nitrate Urine Bilirubin Urine Urobilinogen Ur Leukocyte Esterase Urine RBC Urine WBC Ur Squamous Epith Cells Urine Bacteria Urine Opiates Screen Negative Urine Methadone Screen Negative Ur Barbituates Screen Negative Ur Phencyclidine Scrn Negative Ur Amphetamines Screen Negative U Benzodiazepines Scrn Negative Urine Cocaine Screen Negative U Marijuana (THC) Screen Negative Plasma/Serum Alcohol 0 Influenza Type A Ag Influenza Type B Ag 06/16/19 10:15 WBC RBC Hgb Hct MCV MCH MCHC RDW Plt Count MPV Neut % (Auto) Lymph % (Auto) [place] % (Auto) Eos % (Auto) Baso % (Auto) Neut # (Auto) Lymph # (Auto) [place] # (Auto) Eos # (Auto) Baso # (Auto) Sodium Potassium Chloride Carbon Dioxide Anion Gap BUN Creatinine Estimated Creat Clear Estimated GFR Est GFR ( Amer) Glucose Lactate Calcium Magnesium Total Bilirubin AST ALT Alkaline Phosphatase Total Creatine Kinase Troponin I Total Protein Albumin Globulin Albumin/Globulin Ratio TSH Free T4 Urine Color Yellow Urine Appearance Clear Urine pH 7.0 Ur Specific [place] 1.015 Urine Protein Negative Urine Glucose (UA) Negative Urine Ketones Negative Urine Blood Negative Urine Nitrate Negative Urine Bilirubin Negative Urine Urobilinogen 0.2 Ur Leukocyte Esterase Negative Urine RBC 3-5 Urine WBC Occasional Ur Squamous Epith Cells 3-5 Urine Bacteria Trace Urine Opiates Screen Urine Methadone Screen Ur Barbituates Screen Ur Phencyclidine Scrn Ur Amphetamines Screen U Benzodiazepines Scrn Urine Cocaine Screen U Marijuana (THC) Screen Plasma/Serum Alcohol Influenza Type A Ag Influenza Type B Ag DS: Diagnosis - Discharge Diagnosis (1) Rhabdomyolysis Status: Acute (2) Impaired ambulation Status: Acute (3) Hypomagnesemia Status: Acute (4) Alcoholism Status: Acute Discharge Plan - Patient Discharge Instructions ACTIVITY: Continue current activity DIET: continue same diet Additional Instructions: Patient will be set up with home health. [id number] exam done today. Patient is eligible for home health because of her lack of driving ability, severe weakness and lower extremity pain. I am recommending home health for home safety evaluation, PT/OT/medication management. - Follow up Plan Follow up with: Tres Magallanes [Primary Care Provider] - Disposition: Home Health Service Home Medications: Home Medications Medication Instructions Recorded Confirmed Type Darifenacin Hydrobromide 7.5 mg PO HS 04/10/19 06/16/19 History [Darifenacin ER] risperiDONE [Risperdal] 1 mg PO DAILY 04/10/19 06/16/19 History Albuterol Sulfate [Albuterol HFA 1 - 2 puffs IH Q4-6H PRN 05/10/19 06/16/19 History Inhaler] Pregabalin [Lyrica 300mg Cap] 300 mg PO BID #60 cap 06/13/19 06/16/19 Rx clonazePAM [Clonazepam] 1 mg PO TIDP PRN #30 tab 06/13/19 06/16/19 Rx Fluoxetine HCl 20 mg PO DAILY 06/17/19 06/17/19 History estradioL [Estradiol] 1 mg PO DAILY 06/17/19 06/17/19 History Prescriptions/Medication Reconciliation: Continued Albuterol Sulfate [Albuterol HFA Inhaler] 1 - 2 puffs IH Q4-6H PRN PRN Reason: Shortness Of Breath Or Wheezing Pregabalin [Lyrica 300mg Cap] 300 mg PO BID #60 cap Fluoxetine HCl 20 mg PO DAILY Darifenacin Hydrobromide [Darifenacin ER] 7.5 mg PO HS risperiDONE [Risperdal] 1 mg PO DAILY clonazePAM [Clonazepam] 1 mg PO TIDP PRN #30 tab PRN Reason: Anxiety estradioL [Estradiol] 1 mg PO DAILY - Problem Reconciliation Problems Reviewed?: Yes
== END 2019-06-17 12:30 | disposition home health service (06) ==
LOC: ER 10:07 → 2ND 10:07
PROVIDERS: ADMIT Internal Medicine Adolescent Medicine; ATTEND Internal Medicine Adolescent Medicine
DX: M62.82 Rhabdomyolysis; F32.9 Major depressive disorder, single episode, unspecified; Z79.890 Hormone replacement therapy; Z23 Encounter for immunization; Z79.51 Long term (current) use of inhaled steroids; F10.20 Alcohol dependence, uncomplicated; K21.9 Gastro-esophageal reflux disease without esophagitis; R26.89 Other abnormalities of gait and mobility; E83.42 Hypomagnesemia; J44.9 Chronic obstructive pulmonary disease, unspecified; Z79.899 Other long term (current) drug therapy; D64.9 Anemia, unspecified; F31.9 Bipolar disorder, unspecified
CPT/HCPCS: 36415; 70450; 71010; 71045; 72125; 72148; 72170; 76376; 80053; 80305; 81001; 82550; 83605; 83735; 84439; 84443; 84484; 85025; 87040; 87275; 87276; 90732; 93005; 96365; 96375; 97161; 97165; 99285; G0378

== ENCOUNTER → 2019-11-05 07:39 | Outpatient (CLI) | payer MEDICARE, MEDICAID, SELFPAY ==
--- NOTE | 2019-11-05 | US_ITS ---
PROCEDURE: US ABDOMEN COMPLETE CLINICAL INDICATION: abd swelling COMPARISON: CT ABDOMEN PELVIS W CON from 07/02/2019 FINDINGS: PANCREAS: Unremarkable. No obvious mass or abnormal fluid collection. No ductal dilatation LIVER: There is a hyperechoic focus within the right lobe of the liver corresponding to previously noted lesion on the CT scan. This measures 2.6 x 2.3 cm and may represent a hemangioma. There is appropriate direction of blood flow within non dilated portal vein. RIGHT KIDNEY: Unremarkable. Normal size and echogenicity. No hydronephrosis LEFT KIDNEY: Unremarkable. Normal size and echogenicity. No hydronephrosis GALLBLADDER: Gallbladder wall slightly prominent at 3 to 4 mm. No gallstones apparent. Common bile duct is normal at 5 mm. AORTA: No evidence of aneurysmal dilatation. SPLEEN: Unremarkable. Normal size and echogenicity ASCITES: None demonstrated. IMPRESSION: 1. 2.6 cm hyperechoic nodule the right lobe of the liver compatible with a hemangioma. 2. Mild nonspecific thickening of the gallbladder wall. 3. Otherwise negative Dictated by: Harjinder Paiz MD 11/05/2019 16:46 Electronically signed by Harjinder Paiz MD in [place] 11/05/2019 16:46
== END ==
PROVIDERS: PCP Internal Medicine; Visit Provider Internal Medicine
DX: R10.13 Epigastric pain (principal); R14.0 Abdominal distension (gaseous)
CPT/HCPCS: 76700

== ENCOUNTER → 2020-02-03 14:59 | Outpatient (CLI) | payer MEDICARE, MEDICAID, SELFPAY ==
--- NOTE | 2020-02-03 15:27 | ECG_ITS ---
APPROVED REPORT Exam: Resting ECG HR:81 bpm ECG Measurements Heart Rate [address] 176 P 85 QRSd 78 QRS 99 QT 374 T 78 QTc 434 <Conclusion> Normal sinus rhythm Right atrial enlargement Rightward axis Pulmonary disease pattern Abnormal ECG Electronically signed by : Tres Magallanes, 02/03/2020 16:33:57
[2020-02-03 15:53] LABS: Benzodiazepines Screen,Urine Negative ng/ml (<200)
[2020-02-03 15:54] LABS: Amphetamine/Metha Screen,Urine Negative ng/ml (<1000)
[2020-02-03 15:55] LABS: Barbiturates Screen,Urine Negative ng/ml (<200); Methadone Screen,Urine Negative ng/ml (<300)
[2020-02-03 15:56] LABS: Cannabinoid Screen,Urine Negative ng/ml (<50)
[2020-02-03 15:57] LABS: Cocaine Screen,Urine Negative ng/ml (<300); Opiate Screen,Urine Negative ng/ml (<300)
[2020-02-03 15:58] LABS: Phencyclidine Screen,Urine Negative ng/ml (<25)
== END ==
PROVIDERS: PCP Internal Medicine; Visit Provider Internal Medicine
DX: R55 Syncope and collapse (principal); Z79.891 Long term (current) use of opiate analgesic
CPT/HCPCS: 80305; 93005; 93225; 93226

== ENCOUNTER → 2020-11-09 08:08 | Outpatient (CLI) | payer MEDICARE, MEDICAID, SELFPAY ==
--- NOTE | 2020-11-09 08:24 | MR_ITS ---
PROCEDURE INFORMATION: Exam: MR Abdomen Without and With Contrast Exam date and time: 11/09/2020 8:24 AM Age: 60 years old Clinical indication: Abdominal pain; Additional info: Hepatic lesion, adrenal gland nodule. HX of hepatic lesion and adrenal gland nodule. 14 ml prohance used for contrast lot #[id number] exp 02/2023 bun 11 creat .9 gfr 64 TECHNIQUE: Imaging protocol: MR of the abdomen without and with intravenous contrast. Contrast material: PROHANCE; Contrast volume: 14 ml; Contrast route: IV; COMPARISON: CT ABDOMEN PELVIS W CON 07/02/2019 9:44 AM FINDINGS: Liver: There is a mass in the posterior segment of the right lobe of liver, segment VII, as seen on the prior CT of 07/02/2019. This lesion measures approximately 3 cm transversely, 2.7 cm craniocaudal dimension on series 3, image 21, and 3.4 cm AP diameter on series 9, image 7. The lesion is very high signal intensity on T2 series, is hypointense relative to surrounding liver parenchyma on T1 scans, and shows progressive peripheral contrast enhancement/puddling which slowly increases and fills in over delayed scans, appearance consistent with a benign liver hemangioma. An ovoid 7 mm lesion located posterior and inferior to this on series 9, image 10 , and a 4 mm lesion at the lateral tip of the lateral segment of left lobe coronal series 3, image 10 and axial series 21, image 22 are likely tiny cysts, showing T2 hyperintensity, minimal if any enhancement on this exam, but too small to accurately characterize. No suspicious mass. No hepatomegaly. Gallbladder and bile ducts: Gallbladder appears normal, no wall thickening or intraluminal filling defects. The common duct is mildly dilated measuring up to 8 mm, coronal series 3 images 12-14, but this is chronic compared with CT of 05/10/2019. No intraluminal filling defects or obstructing mass visualized. No significant dilatation of the intrahepatic biliary tree. Pancreas: The pancreas is normal. Spleen: The spleen is normal. Adrenal glands: Mild nodular thickening of the left adrenal gland as reported on the prior CT, a likely 8 mm hypointense nodule on T2 series 9, image 15, fat suppressed image. This also shows slight drop in signal on opposed phase series 5, image 34, compared with in phase series 4, image 31, and shows hypoenhancement on enhanced series 21, image 28, suggesting tiny adrenal adenoma. Right adrenal is unremarkable. Kidneys and ureters: No hydronephrosis or suspicious renal mass. Stomach and bowel: There is no evidence of intestinal perforation or obstruction. The stomach is normal. Intraperitoneal space: There is no significant free intraperitoneal fluid. Arteries: There is no aortic aneurysm. Veins: Patent main portal vein. Bones/joints: Spinal degenerative changes, multilevel disc disease and spondylosis. Soft tissues: There are no soft tissue masses or fluid collections. Other findings: No pleural effusions visible. IMPRESSION: 1. A benign 3.4 cm posterior right hepatic hemangioma, corresponding with the mass seen on prior CT. 2. Additional tiny subcentimeter liver lesions which are likely simple cysts, too small to accurately characterize. 3. 8 mm left adrenal nodule consistent with benign adenoma. 4. Chronic slight dilatation of the common bile duct 8 mm, unchanged compared with CT from 07/02/2019, suggesting likely benign ductal ectasia rather than obstruction. No intraluminal filling defects or obstructing mass seen, correlate with laboratory studies. 5. Additional nonemergency and chronic findings as above.
[2020-11-09 08:31] LABS: Blood Urea Nitrogen 11 mg/dl (7-17); Estimated Glomerular Filt Rate 64 ml/min (>60); GFR (African American) 77 ML/MIN (>60)
== END ==
PROVIDERS: PCP Internal Medicine; Visit Provider Internal Medicine
DX: K76.9 Liver disease, unspecified (principal); E27.9 Disorder of adrenal gland, unspecified
CPT/HCPCS: 36415; 74183; 82565; 84520; A9576

== ENCOUNTER → 2020-12-02 16:54 | Outpatient (CLI) | payer MEDICARE, MEDICAID, SELFPAY ==
--- NOTE | 2020-12-02 17:00 | MR_ITS ---
PROCEDURE: MR LUMBAR SPINE WO CON CLINICAL INDICATION: LOW BACK PAIN, RIGHT SCIATICA COMPARISON: MR MR LUMBAR SPINE WO CON from 06/16/2019 TECHNIQUE: Standard multiplanar multiecho sequences are performed without contrast. 3-D MIP and myelographic images are also rendered and reviewed FINDINGS: There is normal alignment. Spinal cord ends at the L2-L3 level. L1-L2: Mild degenerative disc disease. A Schmorl's node is present along the superior endplate of L2. There is minimal bulging disc. Not significantly changed. L2-L3: Unremarkable. L3-L4: Bulging disc along with moderate facet and ligamentum hypertrophic change with moderate bilateral lateral recess narrowing which appears slightly progressed. There is mild bilateral foraminal narrowing not significantly changed. L4-5: Bulging disc with severe facet and ligamentum hypertrophic change with severe bilateral lateral recess and foraminal narrowing and with severe canal stenosis overall not significantly changed. L5-S1: Mild bulging disc with facet and ligamentum hypertrophy with mild bilateral lateral recess narrowing and moderate bilateral foraminal narrowing not significantly changed. No extruded herniated disc. No acute fracture. IMPRESSION: Multilevel lumbar spondylosis with facet and ligamentum hypertrophy with lateral recess and foraminal narrowing. This is most severe at L4-5 where there is severe canal stenosis and severe bilateral lateral recess and foraminal narrowing overall not significantly changed. Please see above for detailed description at each level. Dictated by: Harjinder Paiz MD 12/05/2020 09:56 Harjinder Paiz MD in [place] 12/05/2020 09:56
== END ==
PROVIDERS: PCP Internal Medicine; Visit Provider Internal Medicine
DX: M54.16 Radiculopathy, lumbar region (principal)
CPT/HCPCS: 72148; 76376

== ENCOUNTER 2020-12-10 10:23 | Emergency (ER) | payer MEDICARE, MEDICAID, SELFPAY ==
[2020-12-10 10:24] VITALS: BP 117/75; PULSE 88; RESP 16; TEMP 37.2; O2SAT 98; BMI 45.7
[2020-12-10 10:32] VITALS: BP 129/88; PULSE 61; RESP 15; O2SAT 97
--- NOTE | 2020-12-10 10:38 | HMH.EDGENADL ---
ED Disposition Clinical Impression: Gastritis Qualifiers: Gastritis type: unspecified gastritis Chronicity: acute Gastritis bleeding: without bleeding Qualified Code(s): K29.00 - Acute gastritis without bleeding Disposition: Home, Self-Care Condition on Discharge: Fair Instructions: DI for Acute Abdominal Pain Additional Instructions: Please take Zofran as prescribed for nausea. Follow-up with your primary care physician in the next week or so to discuss the possibility of an upper endoscopy to rule out gastritis and or a peptic ulcer. Please return to the emergency department if you feel worse in any way. Continue all medications as prescribed. Avoid nonsteroidal anti-inflammatories such as ibuprofen. Prescriptions: Ondansetron [Ondansetron Odt 8mg Tab] 8 mg PO QID 4 Days #16 tab Transmission Status: Received by [facility] Referrals: Tres Magallanes [Primary Care Provider] - 10 days - Critical Care Critical Care Time: No Attestation: On 12/10/20, the high probability of a clinically significant, sudden or life threatening deterioration of the following system(s) required my full and direct attention, intervention and personal management. The time I documented below is in addition to time spent performing reported procedures but includes the following listed in this critical care notation. Medical Decision Making - Medical Records Medical records reviewed: Yes: I reviewed the patient's medical records. - Ed Inquiry Pt receiving controlled substance: No Vital Signs: 12/10/20 10:24 12/10/20 10:32 12/10/20 11:00 Temperature 98.9 F Temperature Source Oral Pulse Rate 61 58 L Pulse Rate [Radial] 88 Respiratory Rate 16 15 18 Blood Pressure 129/88 139/85 Blood Pressure [Right Radial Artery] 117/75 Blood Pressure Mean 105 Blood Pressure Mean [Right Radial Artery] 89 Blood Pressure Position [Right Radial Artery] Sitting 02 Sat by Pulse Oximetry 98 97 98 Oxygen Delivery Method Room Air 12/10/20 11:32 Temperature Temperature Source Pulse Rate 56 L Pulse Rate [Radial] Respiratory Rate 16 Blood Pressure 121/83 Blood Pressure [Right Radial Artery] Blood Pressure Mean 95 Blood Pressure Mean [Right Radial Artery] Blood Pressure Position [Right Radial Artery] 02 Sat by Pulse Oximetry 98 Oxygen Delivery Method - Lab Data Lab results reviewed: Yes: I reviewed the patient's lab results. Lab Results 12/10/20 11:04: WBC 6.5, RBC 4.51, Hgb 14.2, Hct 44.2, MCV 98.0, MCH 31.5 H, MCHC 32.2, RDW 14.2, Plt Count 504 H, MPV 7.4, Neut % (Auto) 57.2, Lymph % (Auto) 31.8, [place] % (Auto) 6.5, Eos % (Auto) 3.5, Baso % (Auto) 1.1, Neut # (Auto) 3.7, Lymph # (Auto) 2.1, [place] # (Auto) 0.4, Eos # (Auto) 0.2, Baso # (Auto) 0.1 12/10/20 11:04: Sodium 139, Potassium 3.5, Chloride 106, Carbon Dioxide 27, Anion Gap 9.5, BUN 6 L, Creatinine 0.70, Estimated Creat Clear 53, Estimated GFR 85, Est GFR ( Amer) 103, Glucose 99, Calcium 9.0, Total Bilirubin 0.4, AST 30, ALT 14, Alkaline Phosphatase 123, Total Protein 7.5, Albumin 4.1, Globulin 3.4 H, Albumin/Globulin Ratio 1.2 12/10/20 11:30: Urine Color Yellow, Urine Appearance Cloudy, Urine pH 6.0, Ur Specific [place] 1.020, Urine Protein Negative, Urine Glucose (UA) Negative, Urine Ketones Negative, Urine Blood 1+, Urine Nitrate Positive, Urine Bilirubin 1+ A, Urine Urobilinogen 0.2, Ur Leukocyte Esterase Negative, Urine RBC 5-10, Urine WBC Occasional, Ur Squamous Epith Cells 3-5, Urine Bacteria 2+ Result diagrams: 12/10/20 11:04 12/10/20 11:04 Orders (Tests/Meds): ED MEDICATIONS Discontinued Medications Generic Name Dose Route Start Last Admin Trade Name Freq PRN Reason Stop Dose Admin Belladonna Alkaloids 60 ml 12/10/20 10:38 12/10/20 10:59 Gi Cocktail 60ml Udc PO 12/10/20 10:39 60 ml ONCE ONE Administration Ondansetron HCl 4 mg 12/10/20 10:40 12/10/20 10:59 Ondansetron 4mg Odt SL 12/10/20 10:41 4 mg ONCE O
--- NOTE | 2020-12-10 10:44 | ECG_ITS ---
APPROVED REPORT Exam: Resting ECG HR:55 bpm ECG Measurements Heart Rate 55 AXES AL 170 P 76 QRSd 80 QRS 80 QT 430 T 73 QTc 411 Conclusion Sinus bradycardia Possible Left atrial enlargement Borderline ECG Electronically signed by : Ángel Smith MD 12/13/2020 21:08:43
[2020-12-10 11:00] VITALS: BP 139/85; PULSE 58; RESP 18; O2SAT 98
[2020-12-10 11:09] LABS: Basophils # 0.1 K/mm3 (0-0.2); Basophils % 1.1 % (0.1-2.0); Eosinophils # 0.2 K/mm3 (0.0-0.4); Eosinophils % 3.5 % (0.1-12.0); Hematocrit 44.2 % (37.0-47.0); Hemoglobin 14.2 g/dL (12.2-16.2); Lymphocytes # 2.1 K/mm3 (0.7-4.5); Lymphocytes % 31.8 % (10-50); Mean Corpuscular HGB Conc 32.2 g/dL (31.8-35.4); Mean Corpuscular Hemoglobin 31.5 pg (27.0-31.2); Mean Platelet Volume 7.4 fl (7.4-10.4); Monocytes # 0.4 K/mm3 (0.1-1.0); Monocytes % 6.5 % (1.7-9.3); Neutrophils # 3.7 K/mm3 (1.8-7.8); Neutrophils % 57.2 % (37.0-80.0); Platelet Count 504 K/mm3 (142-424); Red Blood Count 4.51 M/mm3 (4.20-5.40); Red Cell Distribution Width 14.2 % (11.5-17.5); White Blood Count 6.5 K/mm3 (4.8-10.8)
[2020-12-10 11:20] LABS: Chloride 106 mmol/L (98-107)
[2020-12-10 11:21] LABS: Potassium 3.5 mmoL/L (3.5-5.1); Sodium 139 mmol/L (136-145)
[2020-12-10 11:23] LABS: Blood Urea Nitrogen 6 mg/dl (7-17); Creatinine Clearance Estimated 53 mL/min (50-200); Estimated Glomerular Filt Rate 85 ml/min (>60); GFR (African American) 103 ML/MIN (>60)
[2020-12-10 11:24] LABS: Alanine Aminotransferase 14 U/L (12-78); Albumin Level 4.1 g/dl (3.5-5.0); Albumin/Globulin Ratio 1.2 (1.1-1.8); Alkaline Phosphatase 123 U/L (38-126); Anion Gap 9.5 mEq/L (5-15); Aspartate Amino Transferase 30 U/L (14-36); Bilirubin,Total 0.4 mg/dl (0.2-1.3); Carbon Dioxide 27 mmol/L (22.0-30.0); Globulin 3.4 g/dL (1.3-3.2); Glucose 99 mg/dl (74-100); Total Protein,Serum 7.5 g/dl (6.3-8.2)
[2020-12-10 11:32] VITALS: BP 121/83; PULSE 56; RESP 16; O2SAT 98
[2020-12-10 11:37] LABS: Appearance,Urine CLOUDY (Clear); Blood, Urine 1+ (Negative); Color,Urine YELLOW (Yellow); Glucose,Urine (UA) Negative (Negative); Ketones,Urine Negative (Negative); Leukocyte Esterase,Urine Negative (Negative); Microscopic, Urine URINE MICROSCOPIC (MICROSCOPIC); Nitrate,Urine POSITIVE (Negative); Protein,Urine Negative (Negative); Urobilinogen,Urine 0.2 EU/dl (0.2)
[2020-12-10 11:45] LABS: Bilirubin,Urine 1+ (Negative)
[2020-12-10 11:49] LABS: WBC,Urine Occasional #/hpf (0-3)
[2020-12-10 11:50] LABS: Bacteria,Urine 2+ /lpf
[2020-12-10 12:50] VITALS: BP 110/72; PULSE 57; RESP 16; TEMP 36.6; O2SAT 97
--- NOTE | 2020-12-10 12:50 | PC.NURSE ---
REVIEWED URINE LAB RESULTS WITH DR. SMART NO NEW ORDERS NOTED
== END 2020-12-10 12:52 | disposition home or self-care (01) ==
PROVIDERS: Emergency Provider Emergency Medicine; PCP Internal Medicine
DX: K29.00 Acute gastritis without bleeding (principal); J44.9 Chronic obstructive pulmonary disease, unspecified; K21.9 Gastro-esophageal reflux disease without esophagitis; F33.1 Major depressive disorder, recurrent, moderate; Z79.899 Other long term (current) drug therapy
CPT/HCPCS: 80053; 81001; 85025; 87086; 87088; 87186; 93005; 99282